=== PATIENT | female | born 1970 | race Caucasian/White ===

== ENCOUNTER 2016-07-22 18:28 | Emergency (ER) | payer MEDICARE, OTHER ==
[~2016-07-22] VITALS: Ht 162.6 cm; Wt 102.5 kg
[~2016-07-22 18:28] MED LIST: ADVA500A INH; AMLO5 PO; DILA4TAB2 PO; HUMALOG SQ; HYDR-3534 PO; IPRASOL INH; LANTUS2P SQ; MONT10TA2 PO; PRED-503 PO; VENTAER INH; XANA2TAB2 PO
[2016-07-22 18:30] VITALS: BP 189/111; PULSE 123; RESP 20; TEMP 101; O2SAT 93
== END 2016-07-22 19:38 | disposition left against medical advice (07) ==
LOC: NED 18:28
DX: R06.02 Shortness of breath (principal)
CPT/HCPCS: 99281

== ENCOUNTER 2016-09-28 11:25 | Inpatient (IN) | payer MEDICARE, OTHER ==
[2016-09-28] VITALS (8 sets, daily range): BP systolic 126–182; BP diastolic 68–107; PULSE 76–98; RESP 16–33; TEMP 96.8–98.1; O2SAT 97–100
[~2016-09-28] VITALS: Ht 162.6 cm; Wt 101.2 kg
[2016-09-28] MEDS: RESP: ALBUTEROL 2.5 MG/IPRATROPIUM 0.5 MG NEB (SCH) INH ×2 (11:58→11:59)
[2016-09-28] MEDS ORDERED: methylPREDNISolone SOD SUCC 125 MG/2 ML VIAL IVP ONE (12:00)
[2016-09-28] MEDS ORDERED: SODIUM CHLORIDE 0.9% FLUSH 5 ML FLUSH IVF PRN (12:00)
[2016-09-28 12:09] LABS: AUTOMATED NEUTROPHIL # 8.9 TH/MM3 (1.8-7.7); BASOPHIL % 0.2 % (0.0-2.0); EOSINOPHIL % 0.1 % (0.0-4.0); HEMATOCRIT 41.3 % (35.0-46.0); HEMO FLAGS DIFF FINAL; MEAN CORPUSCULAR HEMOGLOBIN 26.3 PG (27.0-34.0); MEAN CORPUSCULAR HGB CONC 32.8 % (32.0-36.0); MONO % 3.1 % (0.0-8.0); NEUT % 86.6 % (16.0-70.0); PLATELET COUNT 288 TH/MM3 (150-450); RED BLOOD COUNT 5.15 MIL/MM3 (4.00-5.30); RED CELL DISTRIBUTION WIDTH 15.1 % (11.6-17.2); WHITE BLOOD COUNT 10.2 TH/MM3 (4.0-11.0)
[2016-09-28 12:13] LABS: BLOOD GAS BASE EXCESS -3.8 mmol/L (-2-2); BLOOD GAS CARBOXYHEMOGLOBIN 0.9 % (0-4); BLOOD GAS HCO3 20 mmol/L (22-26); BLOOD GAS METHEMOGLOBIN 0.6 % (0-2); BLOOD GAS O2 HGB SATURATION 97 % (90-100); BLOOD GAS PCO2 35 mmHg (38-42); BLOOD GAS PO2 126 mmHG (61-120); BLOOD GAS TOTAL HGB 13.7 G/DL (12.0-16.0); TEMP CORR TO 98.6
[2016-09-28 12:14] LABS: CRITICAL VALUE NO; DRAW SITE LT RADIAL; LITER FLOW 3 L/M; NUMBER OF ARTERIAL PUNCTURES 1; OXYGEN DEVICE NASAL CANNULA; STAT YES; ULNAR PULSE PRESENT
--- NOTE | 2016-09-28 12:34 | PD ---
HPI Chief Complaint: Respiratory Distress Time Seen by Provider: 11:41 Travel History International Travel<30 days: No Contact w/Intl Traveler<30days: No Traveled to known affect area: No History of Present Illness HPI 46yo F with PMH of asthma, DM presents to the ED with c/o sob for 3 days. Pt went to urgent care 2 days ago and was told she should go to the hospital but she did not want to. Pt has chronic severe asthma and is on prednisone 50mg daily, singulair and advair. Pt used 3 treatments last night which did not help. Pt has frequent exacerbations and uses oxygen 3L NC at home daily. Had been intubated 2 years ago. Denies any fever, chest pain, n/v, abdominal pain, focal weakness or numbness. Last ED visit here was 06/2016. PFSH Past Medical History Arthritis: No Asthma: Yes Autoimmune Disease: No Blood Disorders: No Anxiety: Yes Depression: No Heart Rhythm Problems: No Cancer: No Cardiac Catheterization: Yes Cardiovascular Problems: Yes (HTN) High Cholesterol: No Chemotherapy: No Chest Pain: Yes Congestive Heart Failure: No COPD: No Cerebrovascular Accident: No Diabetes: Yes Patient Takes Glucophage: Yes (09/27/16 1900) Diminished Hearing: No Endocrine: Yes Gastrointestinal Disorders: Yes (GERD) GERD: Yes Glaucoma: No Genitourinary: No Headaches: Yes (CHRONIC SINUS INFECTIONS) Hepatitis: No Hiatal Hernia: No Hypertension: Yes Immune Disorder: No Kidney Stones: No Musculoskeletal: Yes (lower back problems) Neurologic: Yes (migraines) Psychiatric: Yes Reproductive: No Respiratory: Yes Migraines: Yes Myocardial Infarction: No Radiation Therapy: No Renal Failure: No Seizures: No Sickle Cell Disease: No Sleep Apnea: Yes Ulcer: No Tetanus Vaccination: < 5 Years Influenza Vaccination: Yes ?: Not : 5 Para: 3 Miscarriage: 1 : 1 Tubal Ligation: Yes Past Surgical History Abdominal Surgery: Yes (hernia repair, mesh, colectomy, colostomy reversal) AICD: No Appendectomy: No Arteriovenous Shunt: No Cardiac Surgery: No Cholecystectomy: No Ear Surgery: No Endocrine Surgery: No Eye Surgery: No Genitourinary Surgery: No Gynecologic Surgery: Yes (RIGHT BREAST LUMPECTOMY - DR. GARCIA) Hysterectomy: Yes (2008) Insulin Pump: No Joint Replacement: No Oral Surgery: No Pacemaker: No Thoracic Surgery: No Tonsillectomy: Yes Other Surgery: Yes (BRONCHOSCOPY) Social History Alcohol Use: No Tobacco Use: No (never) Substance Use: No Allergies-Medications (Allergen,Severity, Reaction): Coded Allergies: Vancomycin (Verified Allergy, Intermediate, HIVES, 09/28/16) Fentanyl (Verified Allergy, Mild, HIVES, 09/28/16) *MDRO Multi-Drug Resistant Organism (Verified Adverse Reaction, Unknown, ) MRSA PCR screen POSITIVE - 08/29/2015 Reported Meds & Prescriptions Reported Meds & Active Scripts Active Reported Metformin (Metformin HCl) 1,000 Mg Tab 1,000 Mg PO BIDPC With meals Deltasone (Prednisone) 20 Mg Tab 30 Mg PO DAILY Singulair (Montelukast Sodium) 10 Mg Tab 10 Mg PO HS Humalog Inj (Insulin Human Lispro) 1,000 Unit/10 Ml Vial 40 Units SQ TID Lantus Inj (Insulin Glargine) 1,000 Unit/10 Ml Vial 30 Units SQ HS Lortab (Hydrocodone-Acetaminophen) 7.5-325 Mg Tab 1-2 Tab PO Q4HR PRN Duoneb (Ipratropium-Albuterol Neb) 0.5-2.5 Mg/3 Ml Neb 1 Nebule INH Q2HR Norvasc (Amlodipine Besylate) 5 Mg Tab 10 Mg PO DAILY Xanax (Alprazolam) 2 Mg Tab 2 Mg PO Q8H PRN Ventolin Hfa 18 GM Inh (Albuterol Sulfate) 90 Mcg/Act Aer 2 Puff INH Q4H PRN Advair Diskus Inh (Fluticasone-Salmeterol Inh) 500-50 Mcg/Blist Aer 1 Puff INH BID Rinse mouth after use. Review of Systems Except as stated in HPI: all other systems reviewed are Neg Physical Exam Narrative GENERAL: 46yo F in moderate distress. SKIN: Warm and dry. HEAD: Atraumatic. Normocephalic. EYES: Pupils equal and round. No scleral icterus. No injection or drainage. ENT: No nasal bleeding or discharge. Mucous membranes pink and moist. +Thrush on tongue. NECK: Trachea midline. No JVD. CARDIOVASCULAR: Mildly tachycardic. No murmur appreciated. RESPIRATORY: +accessory muscle use. Diffuse expiratory wheezing in all lung boyle. GASTROINTESTINAL: Abdomen soft, non-tender, nondistended. +Surgical scar. MUSCULOSKELETAL: No obvious deformities. No clubbing. No cyanosis. No edema. No calf tenderness bilaterally. NEUROLOGICAL: Awake and alert. No obvious cranial nerve deficits. Motor grossly within normal limits. Normal speech. PSYCHIATRIC: Appropriate mood and affect; insight and judgment normal. Data Data Last Documented VS Vital Signs Date Time Temp Pulse Resp B/P Pulse Ox O2 Delivery O2 Flow Rate FiO2 09/28/16 13:10 76 22 126/74 98 Nasal Cannula 3 09/28/16 11:26 97.9 Orders Complete Blood Count With Diff (09/28/16 11:46) Basic Metabolic Panel (Bmp) (09/28/16 11:46) Magnesium (Mg) (09/28/16 11:46) Ckmb (Isoenzyme) Profile (09/28/16 11:46) Troponin I (09/28/16 11:46) Arterial Blood Gas (Abg) (09/28/16 11:46) Influenzae A/B Antigen (09/28/16 11:46) Iv Access Insert/Monitor (09/28/16 11:46) Electrocardiogram (09/28/16 11:46) Ecg Monitoring (09/28/16 11:46) Oximetry (09/28/16 11:46) Oxygen Administration (09/28/16 11:46) Chest, Single Ap (09/28/16 11:46) Sodium Chloride 0.9% Flush (Ns Flush) (09/28/16 12:00) Methylprednisolone So Succ Inj (Solumedr (09/28/16 12:00) Albuterol-Ipratropium Neb (Duoneb Neb) (09/28/16 12:00) Sodium Chlor 0.9% 1000 Ml Inj (Ns 1000 M (09/28/16 13:00) Insulin Human Regular Inj (Novolin R Inj (09/28/16 13:00) Guaifen-Cod 200-20 Mg/10ml Liq (Robituss (09/28/16 14:00) Ibuprofen (Motrin) (09/28/16 14:00) Admit Order (Ed Use Only) (09/28/16 14:04) Labs Laboratory Tests Test 09/28/16 09/28/16 11:58 12:05 White Blood Count 10.2 TH/MM3 Red Blood Count 5.15 MIL/MM3 Hemoglobin 13.5 GM/DL Hematocrit 41.3 % Mean Corpuscular Volume 80.0 FL Mean Corpuscular Hemoglobin 26.3 PG Mean Corpuscular Hemoglobin 32.8 % Concent Red Cell Distribution Width 15.1 % Platelet Count 288 TH/MM3 Mean Platelet Volume 8.3 FL Neutrophils (%) (Auto) 86.6 % Lymphocytes (%) (Auto) 10.0 % Monocytes (%) (Auto) 3.1 % Eosinophils (%) (Auto) 0.1 % Basophils (%) (Auto) 0.2 % Neutrophils # (Auto) 8.9 TH/MM3 Lymphocytes # (Auto) 1.0 TH/MM3 Monocytes # (Auto) 0.3 TH/MM3 Eosinophils # (Auto) 0.0 TH/MM3 Basophils # (Auto) 0.0 TH/MM3 CBC Comment DIFF FINAL Differential Comment Sodium Level 134 MEQ/L Potassium Level 3.8 MEQ/L Chloride Level 97 MEQ/L Carbon Dioxide Level 22.7 MEQ/L Anion Gap 14 MEQ/L Blood Urea Nitrogen 16 MG/DL Creatinine 1.48 MG/DL Estimat Glomerular Filtration 38 ML/MIN Rate Random Glucose 502 MG/DL Calcium Level 8.3 MG/DL Magnesium Level 2.0 MG/DL Total Creatine Kinase 31 U/L Troponin I LESS THAN 0.02 NG/ML Blood Gas Puncture Site LT RADIAL Blood Gas Patient Temperature 98.6 Blood Gas HCO3 20 mmol/L Blood Gas Base Excess -3.8 mmol/L Blood Gas Oxygen Saturation 97 % Arterial Blood pH 7.39 Arterial Blood Partial 35 mmHg Pressure CO2 Arterial Blood Partial 126 mmHG Pressure O2 Arterial Blood Oxygen Content 19.0 Vol % Arterial Blood 0.9 % Carboxyhemoglobin Arterial Blood Methemoglobin 0.6 % Blood Gas Hemoglobin 13.7 G/DL Oxygen Delivery Device NASAL CANNULA Blood Gas Liter Flow 3 L/M Blood Gas Ventilator Setting MDM Medical Decision Making Medical Screen Exam Complete: Yes Emergency Medical Condition: Yes Interpretation(s) EKG: NSR 85bpm. Normal axis. Q wave III. T wave flattening III. Differential Diagnosis Asthma exacerbation vs. pneumonia vs. CHF exacerbation Narrative Course 46yo F with asthma and DM here with sob for 3 days. Pt is wheezing and feels like her asthma. Pt has chronic severe asthma and is on oxygen at home as well as daily oral steroids which makes her diabetes hard to control. Labs reviewed , no leukocytosis. Glucose 502. Anion is 14. CO2 is normal at 22.7. Pt given 10 units of regular insulin and one liter of NS IVF. Creatinine is 1.48, which is at baseline. Troponin is negative. CXR showed cardiomegaly. NO acute focal pulmonary infiltrate or pulmonary vascular congestion. Pt given duonebs x3 and methylprednisolone 60mg IV. Pt still feels sob and is still wheezing bilaterally. Although oxygenation is good, pt has chronic severe asthma and still does not feel good to go home. Still wheezing so will admit for observation. Robitussin and ibuprofen given. Discussed with Dr. Moura and accepted to his service for asthma exacerbation. Diagnosis Primary Impression: Asthma exacerbation Admitting Information Admitting Physician Requests: Observation Carla Nichols DO Sep 28, 2016 12:34
[2016-09-28 12:46] LABS: ANION GAP 14 MEQ/L (5-15); BICARBONATE 22.7 MEQ/L (21.0-32.0); BLOOD UREA NITROGEN 16 MG/DL (7-18); CHLORIDE 97 MEQ/L (98-107); GLOMERULAR FILTRATION RATE 38 ML/MIN (>89); POTASSIUM 3.8 MEQ/L (3.5-5.1); SODIUM (NA) 134 MEQ/L (136-145)
[2016-09-28 12:51] LABS: CREATINE KINASE 31 U/L (26-192)
[2016-09-28] MEDS ORDERED: SODIUM CHLOR 0.9% 1000 ML INJ 1,000 ML IV ONE (13:00)
[2016-09-28] MEDS ORDERED: INSULIN HUMAN REGULAR 1,000 UNITS/10 ML VIAL SQ ONE (13:00)
--- NOTE | 2016-09-28 13:35 | RADRPT ---
EXAM DATE/TIME: 09/28/2016 12:55 [facility] COMPARISON: CHEST SINGLE AP, June 25, 2016, 10:09. INDICATIONS : Asthma with wheezing and coughing, shortness of breath for 3 days MEDICAL HISTORY : Asthma SURGICAL HISTORY : None. ENCOUNTER: Initial ACUITY: 3 days PAIN SCORE: 0/10 LOCATION: Bilateral chest FINDINGS: The heart is enlarged. The pulmonary vascularity pattern is normal. The lungs are clear. CONCLUSION: 1. Cardiomegaly. 2. No acute focal pulmonary infiltrate or pulmonary vascular congestion. Travis Pederson MD on September 28, 2016 at 13:27 Board Certified Radiologist. This report was verified electronically.
[2016-09-28] MEDS ORDERED: IBUPROFEN 600 MG TAB PO ONE (14:00)
[2016-09-28] MEDS ORDERED: guaiFENesin/CODEINE SYRUP 200 MG/20 MG/10 ML CUP PO ONE (14:00)
[2016-09-28] MEDS ORDERED: RESP: ALBUTEROL 2.5 MG/IPRATROPIUM 0.5 MG NEB (PRN) NEB (14:45)
--- NOTE | 2016-09-28 14:59 | HHI.HP ---
HPI Service [facility] Hospitalists Primary Care Physician Georges Hdez MD Admission Diagnosis Asthma exacerbation Chief Complaint: SOB/wheezing Travel History International Travel<30 Days: No Contact w/Intl Traveler <30 Da: No Traveled to Known Affected Are: No History of Present Illness Mrs. Giles is a 46 y/o WF with severe asthma diagnosed around 9 years ago, diagnosed through PFTs per the pt, and is chronically on steroid therapy. Pt thinks that she flares at least twice per month. She states that the lowest dose of steroids she takes is 20mg daily and chronically been on then for the last 8-9 years. She takes Advair 500/50 BID, Albuterol inhaler, and Duonebs at home daily. Pt also has steroid induced hyperglycemia/diabetes and is on Lantus 30 units HS, Humalog 40 units TID and Metformin 1000mg BID. She states that she started to flare up this past Wednesday night, 09/25/16, with a dry cough. She was seen at the urgent care at [place] on Wednesday, 09/26, and was given a shot of Solu-Medrol. She states that they wanted her to go to the ED then but she did not go. She took 50mg of prednisone last night but states that the wheezing and SOB just worsened and this prompted her to come to the ED today. She states that she is on supplemental O2 at home, mostly at night. She has ОЛЕГ but does not use her CPAP at night. Pt follows with Dr. Hutchins as an outpt for her asthma. In the ED pt was given Solu-Medrol 60mg x one dose, Duoneb, and Robitussin AC. Review of Systems Constitutional: DENIES: Fever, Chills Eyes: DENIES: Vision loss Ears, nose, mouth, throat: DENIES: Nasal discharge, Hoarseness, Running Nose, Sinus Pain Respiratory: COMPLAINS OF: Cough, Wheezing, Shortness of breath Cardiovascular: DENIES: Chest pain, Palpitations, Lower Extremity Edema Gastrointestinal: DENIES: Abdominal pain, Nausea, Vomiting Genitourinary: DENIES: Dysuria Musculoskeletal: DENIES: Neck pain Integumentary: DENIES: Rash Neurologic: DENIES: Headache Psychiatric: DENIES: Confusion Past Family Social History Past Medical History Asthma/COPD, severe chronic on high-dose chronic steroids, follows with Dr. Guerrero Hypertension Diabetes Hypothyroidism GERD Migraines Chronic low back pain Obesity Sleep apnea Hx of perforated diverticulosis Hx of wound infections from multiple abdominal surgeries with MRSA infections and wound vac placement Past Surgical History Partial colectomy for perforated diverticulosis Had colostomy and reversal Multiple abdominal surgeries for wound infections, mesh removal Fiberoptic bronchoscopy in 2005 for asthma Partial hysterectomy, pt still has ovaries Wrist surgery Bilateral breast lumpectomies D&C Sinus surgery Tubal ligation Tonsillectomy Reported Medications -Singulair 10 Mg PO HS -Humalog Inj 40 Units SQ TID -Lantus Inj 30 Units SQ HS -Lortab 7.5-325 Mg Tab 1-2 Tab PO Q4HR PRN -Duoneb 0.5-2.5 Mg/3 Ml Neb 1 Nebule INH Q2HR -Norvasc 10 Mg PO DAILY -Ventolin Hfa 18 GM Inh (Albuterol Sulfate) 90 Mcg/Act Aer 2 Puff INH Q4H PRN -Advair Diskus Inh (Fluticasone-Salmeterol Inh) 500-50 Mcg/Blist Aer 1 Puff INH BID Rinse mouth after use. --Deltasone 40 Mg PO DAILY --Xanax 1 Mg PO Q8H PRN ?Lisinopril 20mg PO DAILY ?Metformin 1000Mg PO BID ?Protonix 30Mg PO DAILY Allergies: Coded Allergies: Vancomycin (Verified Allergy, Intermediate, HIVES, 09/28/16) Fentanyl (Verified Allergy, Mild, HIVES, 09/28/16) *MDRO Multi-Drug Resistant Organism (Verified Adverse Reaction, Unknown, ) MRSA PCR screen positive - 08/29/2015 Family History Mother with hx of CAD Brother with cancer unknown type Father with hx of CAD/MN, bypass surgery Social History Never a smoker Denies any alcohol or illicit drug use Lives with and son Physical Exam Vital Signs Vital Signs Date Time Temp Pulse Resp B/P Pulse Ox O2 Delivery O2 Flow Rate FiO2 09/28/16 14:20 79 21 152/71 98 Nasal Cannula 3 09/28/16 13:10 76 22 126/74 98 Nasal Cannula 3 09/28/16 11:59 100 Nasal Cannula 3.00 09/28/16 11:51 99 Nasal Cannula 3 09/28/16 11:44 98 33 167/107 99 Nasal Cannula 3 09/28/16 11:42 100 23 97 Nasal Cannula 3 09/28/16 11:26 97.9 96 24 182/106 98 Room Air Physical Exam GENERAL: This is a well-nourished, well-developed patient, in no apparent distress. SKIN: No rashes, ecchymoses or lesions. Cool and dry. HEENT: Atraumatic. Normocephalic. No temporal or scalp tenderness. No scleral icterus. Airway patent. NECK: Trachea midline, supple, nontender. CARDIO: Regular. RESP: Wheezing throughout and rhonchi noted ABD: +BS, soft, non-tender, nondistended. EXT: Extremities without clubbing, cyanosis, or edema. NEURO: Awake and alert. Motor and sensory grossly within normal limits. Normal speech. Laboratory Laboratory Tests Test 09/28/16 09/28/16 11:58 12:05 White Blood Count 10.2 Red Blood Count 5.15 Hemoglobin 13.5 Hematocrit 41.3 Mean Corpuscular Volume 80.0 Mean Corpuscular Hemoglobin 26.3 Mean Corpuscular Hemoglobin 32.8 Concent Red Cell Distribution Width 15.1 Platelet Count 288 Mean Platelet Volume 8.3 Neutrophils (%) (Auto) 86.6 Lymphocytes (%) (Auto) 10.0 Monocytes (%) (Auto) 3.1 Eosinophils (%) (Auto) 0.1 Basophils (%) (Auto) 0.2 Neutrophils # (Auto) 8.9 Lymphocytes # (Auto) 1.0 Monocytes # (Auto) 0.3 Eosinophils # (Auto) 0.0 Basophils # (Auto) 0.0 CBC Comment DIFF FINAL Differential Comment Sodium Level 134 Potassium Level 3.8 Chloride Level 97 Carbon Dioxide Level 22.7 Anion Gap 14 Blood Urea Nitrogen 16 Creatinine 1.48 Estimat Glomerular Filtration 38 Rate Random Glucose 502 Calcium Level 8.3 Magnesium Level 2.0 Total Creatine Kinase 31 Troponin I LESS THAN 0.02 Blood Gas Puncture Site LT RADIAL Blood Gas Patient Temperature 98.6 Blood Gas HCO3 20 Blood Gas Base Excess -3.8 Blood Gas Oxygen Saturation 97 Arterial Blood pH 7.39 Arterial Blood Partial 35 Pressure CO2 Arterial Blood Partial 126 Pressure O2 Arterial Blood Oxygen Content 19.0 Arterial Blood 0.9 Carboxyhemoglobin Arterial Blood Methemoglobin 0.6 Blood Gas Hemoglobin 13.7 Oxygen Delivery Device NASAL CANNULA Blood Gas Liter Flow 3 Blood Gas Ventilator Setting Date/Time Procedure Status Source Growth 09/28/16 11:56 Influenza Types A,B Antigen (CHANO) - Final Complete Nasal Aspirate NEGATIVE FOR FLU A AND B ANTIGEN.... Result Diagram: 09/28/16 1158 09/28/16 1158 Imaging Last Impressions Chest X-Ray 09/28/16 1146 Signed Impressions: Service Date/Time: Wednesday, September 28, 2016 12:55 - CONCLUSION: 1. Cardiomegaly. 2. No acute focal pulmonary infiltrate or pulmonary vascular congestion. Travis Pederson MD Septic Shock Reassessment Heart: Regular rate and rhythm Lungs: Course Skin: Warm Assessment and Plan Problem List: (1) Asthma exacerbation Status: Acute Plan: - Pt admitted with worsening SOB and wheezing and has severe asthma and has chronically been on high doses of steroids for several years. - Pt was given Solu-Medrol 60mg in the ED, we will given another 60mg now and then continue 60mg Q6H - Duonebs Q4H and Q2H PRN - Phenergan/Codeine for cough PRN - Cont. Symbicort and Singulair - Supportive care - DVT prophylaxis with SCDs (2) DM (diabetes mellitus) Status: Chronic Plan: - Pt with steroid induced hyperglycemia. - Outpt Hgb A1C most recently is over 9 - Pts glucose is over 500 - Pt was given 10 units of insulin in the ED - High dose NovoLog SSI - Levemir 30units HS - Accu checks (3) HTN (hypertension) Status: Chronic Plan: - Cont. home meds - Monitor - Clonidine PRN (4) GERD (gastroesophageal reflux disease) Status: Chronic Plan: - PPI (5) Morbid obesity Status: Chronic (6) Hypothyroidism Status: Chronic Plan: - Cont. home meds Assessment and Plan Patient examined. Assessment and plan formulated with Noelle Hammer PA-C. I agree with the above. asthma exacerbation. solumedrol/nebs. singulair. oxygen Noelle Hammer Sep 28, 2016 14:59 Christopher Mcgill MD Sep 28, 2016 20:21
[2016-09-28] MEDS ORDERED: ALBUTEROL SULFATE 90 MCG/ACT HFA 8 GM INHALER INH PRN (15:45)
[2016-09-28] MEDS ORDERED: methylPREDNISolone SOD SUCC 125 MG/2 ML VIAL IV PUSH ONE (15:45)
[2016-09-28] MEDS ORDERED: METF1000 PO (15:49)
[2016-09-28] MEDS: RESP: ALBUTEROL 2.5 MG/IPRATROPIUM 0.5 MG NEB (SCH) NEB (15:55)
[2016-09-28] MEDS: INSULIN ASPART SUPPLEMENTAL SCALE SQ SCH ×2 (16:48→20:52)
[2016-09-28] MEDS ORDERED: cloNIDine HCL 0.1 MG TAB PO PRN (17:15)
[2016-09-28] MEDS: ALPRAZolam 1 MG TAB PO PRN (17:26)
[2016-09-28] MEDS: ACETAMINOPHEN/HYDROcodone 325 MG/7.5 MG TAB PO PRN ×2 (17:26→22:47)
[2016-09-28] MEDS: MONTELUKAST SODIUM 10 MG TAB PO SCH (20:42)
[2016-09-28] MEDS: NYSTATIN SUSP 500,000 U/5 ML CUP SWISH-SWAL SCH (20:42)
[2016-09-28] MEDS: PROMETHAZINE/CODEINE 6.25 MG/10 MG/5 ML CUP PO PRN (20:42)
[2016-09-28] MEDS: MORPHINE SULFATE 4 MG/ML INJ IV PUSH PRN (20:51)
[2016-09-28] MEDS: INSULIN DETEMIR 100 UNITS/ML VIAL SQ SCH (20:52)
[2016-09-28] MEDS: methylPREDNISolone SOD SUCC 125 MG/2 ML VIAL IV PUSH SCH (22:48)
[2016-09-29] VITALS (9 sets, daily range): BP systolic 122–186; BP diastolic 82–99; PULSE 59–85; RESP 16–20; TEMP 96.9–98.1; O2SAT 94–99
[2016-09-29] MEDS: RESP: ALBUTEROL 2.5 MG/IPRATROPIUM 0.5 MG NEB (SCH) NEB ×6 (00:17→21:43)
[2016-09-29] MEDS: PROMETHAZINE/CODEINE 6.25 MG/10 MG/5 ML CUP PO PRN ×3 (00:53→20:43)
[2016-09-29] MEDS: MORPHINE SULFATE 4 MG/ML INJ IV PUSH PRN ×2 (00:53→06:10)
[2016-09-29] MEDS: BUDESONIDE-FORMOTEROL 160/4.5 MCG INHALER INH SCH ×3 (00:57→20:44)
[2016-09-29] MEDS: ACETAMINOPHEN/HYDROcodone 325 MG/7.5 MG TAB PO PRN ×5 (02:56→23:58)
[2016-09-29] MEDS: ALPRAZolam 1 MG TAB PO PRN ×2 (02:56→20:43)
[2016-09-29] MEDS: methylPREDNISolone SOD SUCC 125 MG/2 ML VIAL IV PUSH SCH ×5 (06:11→23:58)
[2016-09-29] MEDS: INSULIN ASPART SUPPLEMENTAL SCALE SQ SCH ×4 (06:11→20:42)
[2016-09-29 06:52] LABS: AUTOMATED NEUTROPHIL # 9.2 TH/MM3 (1.8-7.7); BASOPHIL % 0.1 % (0.0-2.0); HEMATOCRIT 39.9 % (35.0-46.0); HEMO FLAGS DIFF FINAL; LYMPH % 5.7 % (9.0-44.0); LYMPHOCYTE # 0.6 TH/MM3 (1.0-4.8); MEAN CELL VOLUME 79.5 FL (80.0-100.0); MEAN CORPUSCULAR HEMOGLOBIN 25.8 PG (27.0-34.0); MEAN CORPUSCULAR HGB CONC 32.5 % (32.0-36.0); MONO % 0.6 % (0.0-8.0); NEUT % 93.6 % (16.0-70.0); PLATELET COUNT 274 TH/MM3 (150-450); RED BLOOD COUNT 5.02 MIL/MM3 (4.00-5.30); RED CELL DISTRIBUTION WIDTH 15.2 % (11.6-17.2); WHITE BLOOD COUNT 9.8 TH/MM3 (4.0-11.0)
[2016-09-29 07:39] LABS: BICARBONATE 27.8 MEQ/L (21.0-32.0); MAGNESIUM 2.3 MG/DL (1.5-2.5); POTASSIUM 4.4 MEQ/L (3.5-5.1)
[2016-09-29] MEDS: amLODIPine BESYLATE 5 MG TAB PO SCH (08:41)
[2016-09-29] MEDS: NYSTATIN SUSP 500,000 U/5 ML CUP SWISH-SWAL SCH ×4 (08:41→20:42)
--- NOTE | 2016-09-29 08:43 | PD.PN.STU ---
Subjective Remarks 46 year old female admitted one day ago for acute asthma exacerbation. She states that she is doing a little better but mostly the feels the same as yesterday. Her cough has improved with the Phenergan. She is currently on 2L of oxygen via nasal cannula. She feels short of breath when not using oxygen but will remove it intermittently due to nasal dryness. Objective Vitals Vital Signs Date Time Temp Pulse Resp B/P Pulse Ox O2 Delivery O2 Flow Rate FiO2 09/29/16 07:32 99 Nasal Cannula 2.00 09/29/16 04:00 96.9 59 18 153/96 98 09/29/16 00:19 98 Nasal Cannula 3.00 09/29/16 00:00 97.0 66 18 161/84 97 09/28/16 20:00 96.8 77 18 140/93 97 09/28/16 18:23 98.1 78 16 165/89 98 09/28/16 16:30 91 22 134/68 97 Nasal Cannula 3 09/28/16 14:20 79 21 152/71 98 Nasal Cannula 3 09/28/16 13:10 76 22 126/74 98 Nasal Cannula 3 09/28/16 11:59 100 Nasal Cannula 3.00 09/28/16 11:51 99 Nasal Cannula 3 09/28/16 11:44 98 33 167/107 99 Nasal Cannula 3 09/28/16 11:42 100 23 97 Nasal Cannula 3 09/28/16 11:26 97.9 96 24 182/106 98 Room Air I/O 09/28/16 09/28/16 09/28/16 09/29/16 09/29/16 09/29/16 07:00 15:00 23:00 07:00 15:00 23:00 Intake Total 240 ml 480 ml Balance 240 ml 480 ml Intake Oral 240 ml 480 ml # Voids 3 Result Diagram: 09/29/1660509/29/16 06 Procedures GENERAL: This is a well-developed, well-nourished female who is in no apparent distress. SKIN: No rashes, ecchymoses or lesions. Skin is cool and dry. HEENT: Atraumatic. Normocephalic. No scleral icterus. Airway patent. NECK: Trachea midline, supple, nontender. CARDIO: Normal S1 and S2. No murmurs or gallops RESP: Diffuse wheezing EXT: Extremities without clubbing, cyanosis, or edema. NEURO: Awake and alert. Motor and sensory grossly within normal limits. Normal speech. A/P Assessment and Plan (1) Asthma exacerbation Status: Acute Plan: - Continue 60mg Q6H - Duonebs Q4H and Q2H PRN - Phenergan/Codeine for cough PRN - Cont. Symbicort and Singulair - Supportive care (2) DM (diabetes mellitus) Status: Chronic Plan: - Pt with steroid induced hyperglycemia. - High dose NovoLog SSI - Levemir 30units HS - Accu checks (3) HTN (hypertension) Status: Chronic Plan: - Continue home meds - Monitor - Clonidine PRN (4) GERD (gastroesophageal reflux disease) Status: Chronic Plan: - PPI (5) Morbid obesity Status: Chronic (6) Hypothyroidism Status: Chronic Plan: - Continue home meds Discharge Planning Patient examined. Assessment and plan formulated with Noelle Hammer PA-C. I agree with the above. severe asthma with exacerbation. improving slowly. plan to continue iv solumedrol and convert to po prednisone and taper in AM. contl nebs. cont home maintenance meds singulair and inhalers. will have quick pcp f/u after d/c. Jeimy Rocha Sep 29, 2016 08:42 Christopher Mcgill MD Sep 29, 2016 10:46
--- NOTE | 2016-09-29 10:26 | EKG ---
Date Performed: 09/28/2016 Time Performed: 12:21:59 PTAGE: 46 years EKG: Sinus rhythm NONSPECIFIC T-WAVE ABNORMALITY BORDERLINE ECG PREVIOUS TRACING : 06/25/2016 11.50 DOCTOR: Dario Richards Interpretating Date/Time 09/29/2016 10:22:16
--- NOTE | 2016-09-29 10:43 | HHI.PR ---
Subjective Remarks seems better. Objective Vitals heart reg lung wheezing katarina abd s/nt ext no edema Vital Signs Date Time Temp Pulse Resp B/P Pulse Ox O2 Delivery O2 Flow Rate FiO2 09/29/16 08:00 97.9 75 16 122/82 94 09/29/16 07:32 99 Nasal Cannula 2.00 09/29/16 04:00 96.9 59 18 153/96 98 09/29/16 00:19 98 Nasal Cannula 3.00 09/29/16 00:00 97.0 66 18 161/84 97 09/28/16 20:00 96.8 77 18 140/93 97 09/28/16 18:23 98.1 78 16 165/89 98 09/28/16 16:30 91 22 134/68 97 Nasal Cannula 3 09/28/16 14:20 79 21 152/71 98 Nasal Cannula 3 09/28/16 13:10 76 22 126/74 98 Nasal Cannula 3 09/28/16 11:59 100 Nasal Cannula 3.00 09/28/16 11:51 99 Nasal Cannula 3 09/28/16 11:44 98 33 167/107 99 Nasal Cannula 3 09/28/16 11:42 100 23 97 Nasal Cannula 3 09/28/16 11:26 97.9 96 24 182/106 98 Room Air 09/28/16 09/28/16 09/29/16 14:59 22:59 06:59 Intake Total 240 ml 480 ml Balance 240 ml 480 ml Intake Oral 240 ml 480 ml # Voids 3 Result Diagram: 09/29/16 0606 09/29/16 0606 Imaging Last Impressions Chest X-Ray 09/28/16 1146 Signed Impressions: Service Date/Time: Wednesday, September 28, 2016 12:55 - CONCLUSION: 1. Cardiomegaly. 2. No acute focal pulmonary infiltrate or pulmonary vascular congestion. Travis Pederson MD A/P Problem List: (1) Asthma exacerbation Status: Acute Plan: - Pt admitted with worsening SOB and wheezing and has severe asthma and has chronically been on high doses of steroids for several years. s/p bronchoscopy and thermoplasty. - continue solumedrol today and convert to prednisone in AM. duonebs. cont singulair and maintenance meds plan for d/c home in AM. (2) DM (diabetes mellitus) Status: Chronic Plan: - Pt with steroid induced hyperglycemia. - Outpt Hgb A1C most recently is over 9 - High dose NovoLog SSI - Levemir 30units HS - Accu checks (3) HTN (hypertension) Status: Chronic Plan: - Cont. home meds - Monitor - Clonidine PRN (4) GERD (gastroesophageal reflux disease) Status: Chronic Plan: - PPI (5) Morbid obesity Status: Chronic (6) Hypothyroidism Status: Chronic Plan: - Cont. home meds Christopher Mcgill MD Sep 29, 2016 10:43
[2016-09-29] MEDS: INSULIN DETEMIR 100 UNITS/ML VIAL SQ SCH (20:41)
[2016-09-29] MEDS: MONTELUKAST SODIUM 10 MG TAB PO SCH (20:43)
[2016-09-29] MEDS ORDERED: cloNIDine HCL 0.1 MG TAB PO PRN (21:15)
[2016-09-30] VITALS: BP 164/104; PULSE 74; RESP 20; TEMP 97.1; O2SAT 95
[2016-09-30] MEDS: RESP: ALBUTEROL 2.5 MG/IPRATROPIUM 0.5 MG NEB (SCH) NEB ×4 (01:18→11:44)
[2016-09-30 03:11] VITALS: BP 111/57; PULSE 69; RESP 18; TEMP 96.9; O2SAT 93
[2016-09-30] MEDS: ACETAMINOPHEN/HYDROcodone 325 MG/7.5 MG TAB PO PRN ×2 (06:12→10:13)
[2016-09-30] MEDS: methylPREDNISolone SOD SUCC 125 MG/2 ML VIAL IV PUSH SCH (06:14)
[2016-09-30] MEDS: INSULIN ASPART SUPPLEMENTAL SCALE SQ SCH ×2 (06:20→11:00)
[2016-09-30] MEDS: PROMETHAZINE/CODEINE 6.25 MG/10 MG/5 ML CUP PO PRN (07:02)
[2016-09-30] MEDS: ALPRAZolam 1 MG TAB PO PRN (07:02)
[2016-09-30 07:50] VITALS: BP 161/93; PULSE 66; RESP 20; TEMP 96.9; O2SAT 97
[2016-09-30 08:36] VITALS: O2SAT 97
--- NOTE | 2016-09-30 09:39 | HHI.PR ---
Subjective Remarks better and near baseline. Objective Vitals heart reg lung wheezing bila abd s/nt ext no edema Vital Signs Date Time Temp Pulse Resp B/P Pulse Ox O2 Delivery O2 Flow Rate FiO2 09/30/16 08:36 97 Nasal Cannula 3.00 09/30/16 07:50 96.9 66 20 161/93 97 09/30/16 03:11 96.9 69 18 111/57 93 09/30/16 00:00 97.1 74 20 164/104 95 09/29/16 21:44 98 Nasal Cannula 2.00 09/29/16 20:00 97.8 85 20 156/91 98 09/29/16 16:00 97.8 77 16 172/96 95 09/29/16 12:39 98.1 84 16 186/99 94 09/29/16 09/29/16 09/30/16 15:00 23:00 07:00 Intake Total 900 ml 720 ml 240 ml Balance 900 ml 720 ml 240 ml Intake Oral 900 ml 720 ml 240 ml # Voids 3 3 1 Result Diagram: 09/29/16 0606 09/29/16 0606 Imaging Last Impressions Chest X-Ray 09/28/16 1146 Signed Impressions: Service Date/Time: Wednesday, September 28, 2016 12:55 - CONCLUSION: 1. Cardiomegaly. 2. No acute focal pulmonary infiltrate or pulmonary vascular congestion. Travis Pederson MD A/P Problem List: (1) Asthma exacerbation Status: Acute Plan: - Pt admitted with worsening SOB and wheezing and has severe asthma and has chronically been on high doses of steroids for several years. s/p bronchoscopy and thermoplasty. -improved and pt says she feels comfortable going home. prednisone taper back down to 20mg daily baseline if possible f/u pcp. (2) DM (diabetes mellitus) Status: Chronic Plan: - Pt with steroid induced hyperglycemia. - Outpt Hgb A1C most recently is over 9 - High dose NovoLog SSI - Levemir 30units HS - Accu checks (3) HTN (hypertension) Status: Chronic Plan: - Cont. home meds - Monitor - Clonidine PRN (4) GERD (gastroesophageal reflux disease) Status: Chronic Plan: - PPI (5) Morbid obesity Status: Chronic (6) Hypothyroidism Status: Chronic Plan: - Cont. home meds Christopher Mcgill MD Sep 30, 2016 09:39
[2016-09-30] MEDS ORDERED: PROM6.256 PO (09:45)
[2016-09-30] MEDS ORDERED: PRED10 PO ×2 (09:45→09:48)
[2016-09-30] MEDS ORDERED: NYST1000 SWISH-SWAL (09:45)
--- NOTE | 2016-09-30 09:46 | HHI.DCPOC ---
Discharge Care Plan Diagnosis: (1) Asthma exacerbation Goals to Promote Your Health * To prevent worsening of your condition and complications * To maintain your health at the optimal level Directions to Meet Your Goals Take your medications as prescribed Follow your dietary instruction Follow activity as directed Keep your appointments as scheduled Take your immunizations and boosters as scheduled If your symptoms worsen call your PCP, if no PCP go to Urgent Care Center or Emergency Room Smoking is Dangerous to Your Health. Avoid second hand smoke Call the 24-hour hour crisis hotline for domestic abuse at Christopher Mcgill MD Sep 30, 2016 09:45
[2016-09-30] MEDS ORDERED: predniSONE 10 MG TAB PO ONE (10:00)
[2016-09-30] MEDS: amLODIPine BESYLATE 5 MG TAB PO SCH ×2 (10:12→10:15)
[2016-09-30] MEDS: NYSTATIN SUSP 500,000 U/5 ML CUP SWISH-SWAL SCH ×2 (10:12→10:15)
[2016-09-30] MEDS: BUDESONIDE-FORMOTEROL 160/4.5 MCG INHALER INH SCH (10:22)
== END 2016-09-30 12:17 | disposition home or self-care (01) | DRG 203 ==
LOC: NEPA 11:25 → NEDA 14:06 → OBSVTOIN 16:01 → HOCB 18:14
PROVIDERS: ADMIT Hospitalist; ATTEND Hospitalist
DX: J45.901 Unspecified asthma with (acute) exacerbation (principal); E11.65 Type 2 diabetes mellitus with hyperglycemia; I10 Essential (primary) hypertension; E66.01 Morbid (severe) obesity due to excess calories; T38.0X5A Adverse effect of glucocorticoids and synthetic analogues, initial encounter; K21.9 Gastro-esophageal reflux disease without esophagitis; E03.9 Hypothyroidism, unspecified; Z79.4 Long term (current) use of insulin; Z68.38 Body mass index [BMI] 38.0-38.9, adult
CPT/HCPCS: 36600; 71010; 80048; 82550; 82805; 83735; 84484; 85025; 87804; 93005; 94640; 94664; 96374; 96375; J1815; J2270; J2930; J7030; J7512

== ENCOUNTER 2017-03-21 13:25 | Emergency (ER) | payer MEDICARE, OTHER ==
[~2017-03-21] VITALS: Ht 162.6 cm; Wt 100.0 kg
[~2017-03-21 13:25] MED LIST changes: -DILA4TAB2 PO; +METF1000 PO; +NYST1000 SWISH-SWAL; -PRED-503 PO; +PRED10 PO; +PROM6.256 PO
[2017-03-21 13:27] VITALS: BP 201/89; PULSE 90; RESP 24; TEMP 98.5; O2SAT 97
[2017-03-21 13:33] VITALS: BP 185/92; PULSE 90; RESP 32; O2SAT 94
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
[2017-03-21 14:00] VITALS: O2SAT 95
[2017-03-21] MEDS ORDERED: methylPREDNISolone SOD SUCC 125 MG/2 ML VIAL IVP ONE (14:00)
[2017-03-21] MEDS ORDERED: SODIUM CHLORIDE 0.9% FLUSH 10 ML FLUSH IVF PRN (14:00)
[2017-03-21] MEDS: RESP: ALBUTEROL 2.5 MG/IPRATROPIUM 0.5 MG NEB (SCH) INH (14:10)
[2017-03-21] MEDS ORDERED: BENZ100 PO (14:31)
[2017-03-21] MEDS ORDERED: ALBUAER3 INH (14:36)
== END 2017-03-21 15:51 | disposition home or self-care (01) ==
LOC: NEPD 13:25
DX: J45.901 Unspecified asthma with (acute) exacerbation (principal); I10 Essential (primary) hypertension
CPT/HCPCS: 94640; 94664; 96374; 99285; J2930

== ENCOUNTER 2017-04-17 05:34 | Emergency (ER) | payer MEDICARE, OTHER ==
[~2017-04-17] VITALS: Ht 162.6 cm; Wt 100.0 kg
[~2017-04-17 05:34] MED LIST changes: +ALBUAER3 INH; +BENZ100 PO
[2017-04-17 05:39] VITALS: BP 179/103; PULSE 84; RESP 18; TEMP 97.7; O2SAT 96
[2017-04-17] MEDS ORDERED: CYCL1TAB29 PO (05:42)
[2017-04-17] MEDS ORDERED: ZITHTAB PO (05:51)
[2017-04-17] MEDS ORDERED: NOVOLOGP2 SQ (05:51)
[2017-04-17] MEDS ORDERED: PRED20 PO (05:51)
--- NOTE | 2017-04-17 05:55 | PD ---
HPI Chief Complaint: shoulder pain Time Seen by Provider: 05:40 Travel History International Travel<30 days: No Contact w/Intl Traveler<30days: No Traveled to known affect area: No History of Present Illness HPI The patient is a 47-year-old female who presents emergency department for right shoulder and scapula pain. The patient states she developed right shoulder as The pain several days ago as located in the right scapula, radiates up to the right trapezius and occasionally radiates down the right arm. The pain is worse with certain tightness and movement and positions, sharp, achy, and radiating into the right upper extremity. She denies any weakness or numbness of the right upper extremity. The patient received an injection of Solu-Medrol yesterday and her physician's office for asthma was discharged home on prednisone. She was also prescribed Flexeril, however, states the Flexeril is not alleviating her symptoms. The patient denies any chest pain, does note mild shortness of breath secondary to her asthma, but states that has improved since yesterday. The patient states her has been applying BenGay over the affected area and massage in the affected area which does help the pain, however, the pain will return. Symptoms are mild to moderate, worse with positional changes and movement, slightly alleviated with massage, BenGay, and pain medications. PFSH Past Medical History Arthritis: No Asthma: Yes Autoimmune Disease: No Blood Disorders: No Anxiety: Yes Depression: No Heart Rhythm Problems: No Cancer: No Cardiac Catheterization: Yes Cardiovascular Problems: Yes (HTN) High Cholesterol: No Chemotherapy: No Chest Pain: Yes Congestive Heart Failure: No COPD: No Cerebrovascular Accident: No Diabetes: Yes Diminished Hearing: No Endocrine: Yes Gastrointestinal Disorders: Yes (GERD) GERD: Yes Glaucoma: No Genitourinary: No Headaches: Yes (CHRONIC SINUS INFECTIONS) Hepatitis: No Hiatal Hernia: No Hypertension: Yes Immune Disorder: No Kidney Stones: No Musculoskeletal: Yes (lower back problems) Neurologic: Yes (migraines) Psychiatric: Yes Reproductive: No Respiratory: Yes Migraines: Yes Myocardial Infarction: No Radiation Therapy: No Renal Failure: No Seizures: No Sickle Cell Disease: No Sleep Apnea: Yes Ulcer: No : 5 Para: 3 Miscarriage: 1 : 1 Tubal Ligation: Yes Past Surgical History Abdominal Surgery: Yes (hernia repair, mesh, colectomy, colostomy reversal) AICD: No Appendectomy: No Arteriovenous Shunt: No Cardiac Surgery: No Cholecystectomy: No Ear Surgery: No Endocrine Surgery: No Eye Surgery: No Genitourinary Surgery: No Gynecologic Surgery: Yes (RIGHT BREAST LUMPECTOMY - DR. GARCIA) Hysterectomy: Yes (2008) Insulin Pump: No Joint Replacement: No Oral Surgery: No Pacemaker: No Thoracic Surgery: No Tonsillectomy: Yes Other Surgery: Yes (BRONCHOSCOPY) Social History Alcohol Use: No Tobacco Use: No (never) Substance Use: No Allergies-Medications (Allergen,Severity, Reaction): Coded Allergies: vancomycin (Unverified Allergy, Intermediate, HIVES, 02/23/17) fentanyl (Unverified Allergy, Mild, HIVES, 02/23/17) *MDRO Multi-Drug Resistant Organism (Verified Adverse Reaction, Unknown, ) MRSA PCR screen POSITIVE - 08/29/2015 Reported Meds & Prescriptions Reported Meds & Active Scripts Active Proair Hfa 8.5 GM Inh (Albuterol Sulfate) 90 Mcg/Act Aer 2 Puff INH Q4HR PRN 108 mcg/actuation Tessalon Perles (Benzonatate) 100 Mg Cap 200 Mg PO TID PRN Prednisone 10 Mg Tab 10 Mg PO DIRECTED 30 Days 30mg po bid x 7 days, 20mg po bid x 7 days, 15 mg po bid x 7 days, then 10mg po bid Promethazine-Codeine Liq 6.25-10 Mg/5 Ml Syrp 5 Ml PO Q4H PRN 30 Days Nystatin Liq 100,000 unit/ml Susp 5 Ml SWISH-SWAL QID 7 Days Reported Flexeril (Cyclobenzaprine HCl) 10 Mg Tab 10 Mg PO TID Metformin (Metformin HCl) 1,000 Mg Tab 1,000 Mg PO BIDPC With meals Singulair (Montelukast Sodium) 10 Mg Tab 10 Mg PO HS Humalog Inj (Insulin Human Lispro) 1,000 Unit/10 Ml Vial 40 Units SQ TID Lantus Inj (Insulin Glargine) 1,000 Unit/10 Ml Vial 30 Units SQ HS Lortab (Hydrocodone-Acetaminophen) 7.5-325 Mg Tab 1-2 Tab PO Q4HR PRN Duoneb (Ipratropium-Albuterol Neb) 0.5-2.5 Mg/3 Ml Neb 1 Nebule INH Q2HR Norvasc (Amlodipine Besylate) 5 Mg Tab 10 Mg PO DAILY Xanax (Alprazolam) 2 Mg Tab 2 Mg PO Q8H PRN Ventolin Hfa 18 GM Inh (Albuterol Sulfate) 90 Mcg/Act Aer 2 Puff INH Q4H PRN Advair Diskus Inh (Fluticasone-Salmeterol Inh) 500-50 Mcg/Blist Aer 1 Puff INH BID Rinse mouth after use. Review of Systems Except as stated in HPI: all other systems reviewed are Neg HENT: Positive: Neck Pain Cardiovascular: No: Chest Pain or Discomfort Respiratory: Positive: Cough (currently on Zithromax for possible bronchitis with her asthma), Shortness of Breath (secondary to asthma, currently being treated), Wheezing Gastrointestinal: No: Nausea, Vomiting Musculoskeletal: Positive: Pain, No: Weakness Neurologic: No: Weakness, Paresthesia, Sensory Disturbance Physical Exam Narrative GENERAL: Awake, alert, pleasant 47-year-old female who appears her stated age and is in no acute respiratory distress. SKIN: Focused skin assessment warm/dry. HEAD: Atraumatic. Normocephalic. EYES: Pupils equal and round. No scleral icterus. No injection or drainage. ENT: No nasal bleeding or discharge. Mucous membranes pink and moist. NECK: Trachea midline. No JVD. CARDIOVASCULAR: Regular rate and rhythm. No murmur appreciated. RESPIRATORY: Prolonged expiratory phase with a few intermittent wheezes. Back: Patient is tender to palpation along the rhomboids in the right scapula. Deep palpation re-exacerbates her pain, however, does provide mild relief. MUSCULOSKELETAL: No obvious deformities. No clubbing. No cyanosis. No edema. Strength with flexion extension of the right elbow is 5 out of 5. [employer] Supervisor strength is 5 out of 5. Intrinsic hand muscles on the right are intact. Positive right radial pulse. Abduction right shoulder is 5 out of 5, but reproduces symptoms. NEUROLOGICAL: Awake and alert. No obvious cranial nerve deficits. Motor grossly within normal limits. Normal speech. Sensation is intact with radial, median, and ulnar distribution of the right upper extremity. PSYCHIATRIC: Appropriate mood and affect; insight and judgment normal. Data Data Last Documented VS Vital Signs Date Time Temp Pulse Resp B/P (MAP) Pulse Ox O2 Delivery O2 Flow Rate FiO2 04/17/17 05:39 97.7 84 18 179/103 (128) 96 Room Air Orders Orders Ketorolac Inj (Toradol Inj) (04/17/17 06:00) Morphine Inj (Morphine Inj) (04/17/17 06:00) Promethazine Inj (Phenergan Inj) (04/17/17 06:00) [facility] Medical Decision Making Medical Screen Exam Complete: Yes Emergency Medical Condition: Yes Medical Record Reviewed: Yes Differential Diagnosis Differential diagnosis includes musculoskeletal pain, cervical radiculopathy, shingles, atypical acute coronary syndrome, atypical pulmonary embolism, pneumonia, neuropathy. Narrative Course The patient's physical examination is consistent with musculoskeletal pain is reproducible with palpation of the rhomboids and minimal palpation of the trapezius. The patient has no acute neurologic deficits. She is already on prednisone for asthma, is advised to continue taking prednisone and Flexeril as directed. Patient already has [place] at home, is advised to continue [place] as previously directed. The patient was administered a shot of Toradol, morphine, and Phenergan for pain relief, her will give her drive home. She is advised to follow-up with her primary physician. Diagnosis Primary Impression: Rhomboid muscle pain Additional Instructions: Continue Flexeril, prednisone, [place] as previously directed. Apply ice and/or heat to the affected area. Try massage therapy as tolerated. Follow-up with your primary physician. Med/Other Pt SpecificInfo: No Change to Meds Disposition: 01 DISCHARGE HOME Condition: Stable Enrike Avery MD Apr 17, 2017 05:55
[2017-04-17] MEDS ORDERED: PROMETHAZINE INJ 25 MG/ML VIAL IM ONE (06:00)
[2017-04-17] MEDS ORDERED: KETOROLAC TROMETHAMINE 60 MG/2 ML (IM) VIAL IM ONE (06:00)
[2017-04-17] MEDS ORDERED: MORPHINE SULFATE 8 MG/ML INJ IM ONE (06:00)
== END 2017-04-17 06:18 | disposition home or self-care (01) ==
LOC: NEPE 05:34
DX: M79.1 Myalgia (principal)
CPT/HCPCS: 96372; 99284; J1885; J2270; J2550

== ENCOUNTER 2017-06-27 14:27 | Inpatient (IN) | payer MEDICARE, OTHER ==
[~2017-06-27] VITALS: Ht 162.6 cm; Wt 103.0 kg
[~2017-06-27 14:27] MED LIST changes: +CYCL10TA PO; -HUMALOG SQ; +NOVOLOGP2 SQ; -NYST1000 SWISH-SWAL; -PRED10 PO; +PRED20 PO; -PROM6.256 PO; +ZITHTAB PO
[2017-06-27 14:28] VITALS: BP 172/92; PULSE 120; RESP 22; TEMP 98.6; O2SAT 94
[2017-06-27] MEDS ORDERED: SODIUM CHLORIDE 0.9% FLUSH 10 ML FLUSH IVF PRN (15:45)
[2017-06-27] MEDS ORDERED: methylPREDNISolone SOD SUCC 125 MG/2 ML VIAL IV PUSH ONE (15:45)
[2017-06-27] MEDS ORDERED: RESP: BUDESONIDE 0.5 MG/2 ML NEB NEB ONE (15:45)
--- NOTE | 2017-06-27 15:50 | PD ---
HPI Chief Complaint: Respiratory Symptoms Time Seen by Provider: 15:40 Travel History International Travel<30 days: No Contact w/Intl Traveler<30days: No Traveled to known affect area: No History of Present Illness HPI Patient is a 47-year-old female presenting to emergency for evaluation of shortness of breath and wheezing. Patient states her symptoms started one month ago, she has been seeing her primary care provider who has placed her on antibiotics as well as oral steroids. She was last on Levaquin for 5 days with no improvement. She has a history of asthma/COPD, she's never been a smoker. She denies any pain at this time. She has been hospitalized in the past for status asthmaticus. She was advised by her primary care provider to come to the ED if no improvement in her symptoms. Patient also reports a history of diabetes and states her blood sugar has been elevated due to the oral steroids she's been taking. Patient wears oxygen every night. PFSH Past Medical History Asthma: Yes Anxiety: Yes Cardiac Catheterization: Yes (2011, 2012 3-4 total) Chest Pain: Yes Diabetes: Yes GERD: Yes Headaches: Yes (CHRONIC SINUS INFECTIONS) Hypertension: Yes Musculoskeletal: Yes (lower back problems) Psychiatric: Yes Migraines: Yes Sleep Apnea: Yes : 5 Para: 3 Miscarriage: 1 : 1 Tubal Ligation: Yes Past Surgical History Abdominal Surgery: Yes (hernia repair, mesh, colectomy, colostomy reversal) Gynecologic Surgery: Yes (RIGHT BREAST LUMPECTOMY) Hysterectomy: Yes (2008) Tonsillectomy: Yes Social History Alcohol Use: No Tobacco Use: No (never) Substance Use: No Allergies-Medications (Allergen,Severity, Reaction): Coded Allergies: vancomycin (Unverified Allergy, Intermediate, HIVES, 06/27/17) fentanyl (Unverified Allergy, Mild, HIVES, 06/27/17) *MDRO Multi-Drug Resistant Organism (Verified Adverse Reaction, Unknown, 06/27/17) MRSA PCR screen POSITIVE - 08/29/2015 Reported Meds & Prescriptions Reported Meds & Active Scripts Active Proair Hfa 8.5 GM Inh (Albuterol Sulfate) 90 Mcg/Act Aer 2 Puff INH Q4HR PRN 108 mcg/actuation Tessalon Perles (Benzonatate) 100 Mg Cap 200 Mg PO TID PRN Reported Novolog Inj (Insulin Aspart) 1,000 Unit/10 Ml Vial 40 Units SQ TID Prednisone 20 Mg Tab 40 Mg PO DAILY Take 40 mg (2 tablets) daily for 5 days Zithromax Z-Ethan (Azithromycin) 250 Mg Dspk 250 Mg PO DIRECTED 500 MG (2 tabs) day 1, then 1 tab days 2-5. Flexeril (Cyclobenzaprine HCl) 10 Mg Tab 10 Mg PO TID Metformin (Metformin HCl) 1,000 Mg Tab 1,000 Mg PO BIDPC With meals Singulair (Montelukast Sodium) 10 Mg Tab 10 Mg PO HS Lantus Inj (Insulin Glargine) 1,000 Unit/10 Ml Vial 30 Units SQ HS Lortab (Hydrocodone-Acetaminophen) 7.5-325 Mg Tab 1-2 Tab PO Q4HR PRN Duoneb (Ipratropium-Albuterol Neb) 0.5-2.5 Mg/3 Ml Neb 1 Nebule INH Q2HR Norvasc (Amlodipine Besylate) 5 Mg Tab 10 Mg PO DAILY Xanax (Alprazolam) 2 Mg Tab 2 Mg PO Q8H PRN Ventolin Hfa 18 GM Inh (Albuterol Sulfate) 90 Mcg/Act Aer 2 Puff INH Q4H PRN Advair Diskus Inh (Fluticasone-Salmeterol Inh) 500-50 Mcg/Blist Aer 1 Puff INH BID Rinse mouth after use. Review of Systems Except as stated in HPI: all other systems reviewed are Neg General / Constitutional: No: Fever, Chills Eyes: No: Blurred Vision HENT: No: Headaches Cardiovascular: Positive: Tachycardia, No: Chest Pain or Discomfort Respiratory: Positive: Cough, Shortness of Breath, Wheezing, Orthopnea, Pleuritic Pain Gastrointestinal: No: Nausea, Vomiting, Abdominal Pain Musculoskeletal: No: Myalgias Neurologic: No: Weakness, Dizziness Physical Exam Narrative GENERAL: Well-developed, well-nourished, alert female. Resting comfortably in no acute distress. SKIN: Warm and dry. Face is flushed. HEAD: Atraumatic. Normocephalic. EYES: Pupils equal and round. No scleral icterus. No injection or drainage. ENT: No nasal bleeding or discharge. Mucous membranes pink and moist. NECK: Trachea midline. No JVD. CARDIOVASCULAR: Mild tachycardia RESPIRATORY: No accessory muscle use. Expiratory wheezing throughout lung boyle, tachypneic GASTROINTESTINAL: Abdomen soft, non-tender, nondistended. Hepatic and splenic margins not palpable. MUSCULOSKELETAL: Extremities without clubbing, cyanosis, or edema. No obvious deformities. NEUROLOGICAL: Awake and alert. No obvious cranial nerve deficits. Motor grossly within normal limits. Five out of 5 muscle strength in the arms and legs. Normal speech. PSYCHIATRIC: Appropriate mood and affect; insight and judgment normal. Data Data Last Documented VS Vital Signs Date Time Temp Pulse Resp B/P (MAP) Pulse Ox O2 Delivery O2 Flow Rate FiO2 06/27/17 15:58 96 28 98 Room Air 06/27/17 15:56 (118) 06/27/17 15:56 2.00 06/27/17 14:28 98.6 Orders Orders Electrocardiogram (06/27/17 ) Complete Blood Count With Diff (06/27/17 15:38) Comprehensive Metabolic Panel (06/27/17 15:38) Chest, Pa & Lat (06/27/17 15:38) Ecg Monitoring (06/27/17 15:38) Iv Access Insert/Monitor (06/27/17 15:38) Oximetry (06/27/17 15:38) Oxygen Administration (06/27/17 15:38) Methylprednisolone So Succ Inj (Solumedr (06/27/17 15:45) Albuterol-Ipratropium Neb (Duoneb Neb) (06/27/17 15:45) Sodium Chloride 0.9% Flush (Ns Flush) (06/27/17 15:45) Budesonide Neb (Pulmicort Respule Neb) (06/27/17 15:45) Potassium Chloride (Kcl) (06/27/17 17:15) Admit Order (Ed Use Only) (06/27/17 17:07) Labs Laboratory Tests Test 06/27/17 16:00 White Blood Count 11.3 TH/MM3 Red Blood Count 5.36 MIL/MM3 Hemoglobin 14.4 GM/DL Hematocrit 44.2 % Mean Corpuscular Volume 82.5 FL Mean Corpuscular Hemoglobin 26.9 PG Mean Corpuscular Hemoglobin Concent 32.6 % Red Cell Distribution Width 15.0 % Platelet Count 268 TH/MM3 Mean Platelet Volume 7.7 FL Neutrophils (%) (Auto) 72.3 % Lymphocytes (%) (Auto) 15.2 % Monocytes (%) (Auto) 11.4 % Eosinophils (%) (Auto) 0.4 % Basophils (%) (Auto) 0.7 % Neutrophils # (Auto) 8.1 TH/MM3 Lymphocytes # (Auto) 1.7 TH/MM3 Monocytes # (Auto) 1.3 TH/MM3 Eosinophils # (Auto) 0.0 TH/MM3 Basophils # (Auto) 0.1 TH/MM3 CBC Comment DIFF FINAL Differential Comment Blood Urea Nitrogen 13 MG/DL Creatinine 1.11 MG/DL Random Glucose 57 MG/DL Total Protein 7.2 GM/DL Albumin 3.7 GM/DL Calcium Level 9.5 MG/DL Alkaline Phosphatase 80 U/L Aspartate Amino Transf (AST/SGOT) 11 U/L Alanine Aminotransferase (ALT/SGPT) 16 U/L Total Bilirubin 0.2 MG/DL Sodium Level 142 MEQ/L Potassium Level 3.3 MEQ/L Chloride Level 107 MEQ/L Carbon Dioxide Level 27.9 MEQ/L Anion Gap 7 MEQ/L Estimat Glomerular Filtration Rate 53 ML/MIN MDM Medical Decision Making Medical Screen Exam Complete: Yes Emergency Medical Condition: Yes Interpretation(s) Vital Signs Date Time Temp Pulse Resp B/P (MAP) Pulse Ox O2 Delivery O2 Flow Rate FiO2 06/27/17 14:28 98.6 120 22 172/92 (118) 94 Differential Diagnosis Pneumonia versus bronchitis versus asthma versus status asthmaticus versus other Narrative Course Patient is a 47-year-old female presenting to the emergency family evaluation of shortness of breath and wheezing, this is been ongoing for 1 month, she has several outpatient treatments which have failed. She presents on the advice of her primary doctor. Labs and imaging ordered and pending. Patient was placed on 2 L of oxygen via nasal cannula for an O2 sat of 94% on arrival. Patient was also tachycardic with heart rate of 120. In the room her heart rate is currently at 98. Chest x-ray shows no acute disease. Due to ongoing symptoms as well as hypoxia patient will be admitted at this time. Discussed with Dr. Mccoy who accepted admission. Admit orders placed. Diagnosis Primary Impression: Asthma exacerbation Qualified Codes: J45.901 - Unspecified asthma with (acute) exacerbation Admitting Information Admitting Physician Requests: Admit Condition: Stable Jany Marie [facility] Jun 27, 2017 15:50
[2017-06-27] MEDS: RESP: ALBUTEROL 2.5 MG/IPRATROPIUM 0.5 MG NEB (SCH) INH ×2 (15:52→15:53)
[2017-06-27 16:12] LABS: AUTOMATED NEUTROPHIL # 8.1 TH/MM3 (1.8-7.7); BASOPHIL # 0.1 TH/MM3 (0-0.2); BASOPHIL % 0.7 % (0.0-2.0); EOSINOPHIL % 0.4 % (0.0-4.0); HEMATOCRIT 44.2 % (35.0-46.0); HEMO FLAGS DIFF FINAL; LYMPH % 15.2 % (9.0-44.0); LYMPHOCYTE # 1.7 TH/MM3 (1.0-4.8); MEAN CELL VOLUME 82.5 FL (80.0-100.0); MEAN CORPUSCULAR HEMOGLOBIN 26.9 PG (27.0-34.0); MEAN CORPUSCULAR HGB CONC 32.6 % (32.0-36.0); MONO % 11.4 % (0.0-8.0); NEUT % 72.3 % (16.0-70.0); PLATELET COUNT 268 TH/MM3 (150-450); RED BLOOD COUNT 5.36 MIL/MM3 (4.00-5.30); WHITE BLOOD COUNT 11.3 TH/MM3 (4.0-11.0)
[2017-06-27 16:43] LABS: ALKALINE PHOSPHATASE 80 U/L (45-117); TOTAL BILIRUBIN ADULT 0.2 MG/DL (0.2-1.0)
--- NOTE | 2017-06-27 16:49 | RADRPT ---
EXAM DATE/TIME: 06/27/2017 16:36 [place] COMPARISON: CHEST PA & LAT, August 26, 2015, 11:29. INDICATIONS : Shortness of breath. MEDICAL HISTORY : Chronic obstructive pulmonary disease. Asthma. SURGICAL HISTORY : None. ENCOUNTER: Initial ACUITY: 2 weeks PAIN SCORE: 0/10 LOCATION: Bilateral chest FINDINGS: PA and lateral views of the chest demonstrate the lungs to be symmetrically aerated without evidence of mass, infiltrate or effusion. The cardiomediastinal contours are unremarkable. Osseous structure s are intact. CONCLUSION: No acute disease. Miah Owens MD on June 27, 2017 at 16:45 Board Certified Radiologist. This report was verified electronically.
[2017-06-27 16:58] LABS: ALT (GPT) 16 U/L (10-53); ANION GAP 7 MEQ/L (5-15); AST (GOT) 11 U/L (15-37); BICARBONATE 27.9 MEQ/L (21.0-32.0); BLOOD UREA NITROGEN 13 MG/DL (7-18); CHLORIDE 107 MEQ/L (98-107); GLOMERULAR FILTRATION RATE 53 ML/MIN (>89); POTASSIUM 3.3 MEQ/L (3.5-5.1); SODIUM (NA) 142 MEQ/L (136-145)
[2017-06-27] MEDS ORDERED: POTASSIUM CHLORIDE 10 MEQ CONTROLLED RELEASE TAB PO ONE (17:15)
[2017-06-27] MEDS ORDERED: HYDR-3580 PO (17:25)
[2017-06-27] MEDS ORDERED: PROM6.256 PO (17:25)
--- NOTE | 2017-06-27 17:32 | HHI.HP ---
HPI Service CP Hospitalists Primary Care Physician Georges Hdez MD Admission Diagnosis ASTHMA EXACERBATION Chief Complaint: sob Travel History International Travel<30 Days: No Contact w/Intl Traveler <30 Da: No Traveled to Known Affected Are: No History of Present Illness Mrs. Giles is a 47 y/o WF with severe asthma diagnosed around 10years ago, diagnosed through PFTs per the pt, and is chronically on steroid therapy up to 40mg per day. Pt reports having a flare of her asthma over past 2-3 weeks and coughing up green sputum. She has been to urgent care and to pcp. She has had several shots of steroid in the office and again takes 40mg prednisone per day. She has had 2 zacks and currently on levaquin. Decided to come here as she still has significant sob and wheezing.. In ED has had solumedrol and nebs. Review of Systems Other sob/cough Past Family Social History Past Medical History Asthma/COPD, severe chronic on high-dose chronic steroids, follows with Dr. Guerrero hx thermoplasty to lung Hypertension Diabetes Hypothyroidism GERD Migraines Chronic low back pain Obesity Sleep apnea Hx of perforated diverticulosis Hx of wound infections from multiple abdominal surgeries with MRSA infections and wound vac placement Past Surgical History Partial colectomy for perforated diverticulosis Had colostomy and reversal Multiple abdominal surgeries for wound infections, mesh removal Fiberoptic bronchoscopy in 2005 for asthma Partial hysterectomy, pt still has ovaries Wrist surgery Bilateral breast lumpectomies D&C Sinus surgery Tubal ligation Tonsillectomy Reported Medications Promethazine-Codeine Liq 6.25-10 Mg/5 Ml Syrp 10 Ml PO Q4H PRN Hydrocodone-Acetaminophen 7.5 Mg-325 Mg Tab 2 Tab PO Q4H PRN Novolog Inj (Insulin Aspart) 1,000 Unit/10 Ml Vial 40 Units SQ TID Prednisone 40mg daily Flexeril (Cyclobenzaprine HCl) 10 Mg Tab 10 Mg PO TID Metformin (Metformin HCl) 1,000 Mg Tab 1,000 Mg PO BIDPC With meals Singulair (Montelukast Sodium) 10 Mg Tab 10 Mg PO HS Lantus Inj (Insulin Glargine) 1,000 Unit/10 Ml Vial 40 Units SQ HS Duoneb (Ipratropium-Albuterol Neb) 0.5-2.5 Mg/3 Ml Neb 1 Nebule INH Q2HR Norvasc (Amlodipine Besylate) 5 Mg Tab 10 Mg PO DAILY Xanax (Alprazolam) 2 Mg Tab 2 Mg PO Q8H PRN Ventolin Hfa 18 GM Inh (Albuterol Sulfate) 90 Mcg/Act Aer 2 Puff INH Q4H PRN Advair Diskus Inh (Fluticasone-Salmeterol Inh) 500-50 Mcg/Blist Aer 1 Puff INH BID Rinse mouth after use. lisinipril 20mg bid Allergies: Coded Allergies: vancomycin (Unverified Allergy, Intermediate, HIVES, 06/27/17) fentanyl (Unverified Allergy, Mild, HIVES, 06/27/17) *MDRO Multi-Drug Resistant Organism (Verified Adverse Reaction, Unknown, 06/27/17) MRSA PCR screen POSITIVE - 08/29/2015 Family History Mother with hx of CAD Brother with cancer unknown type Father with hx of CAD/WA, bypass surgery Social History Never a smoker Denies any alcohol or illicit drug use Lives with and son Physical Exam Vital Signs heart reg lung bilateral exp wheezing abd s/nt ext no pitting Vital Signs Date Time Temp Pulse Resp B/P (MAP) Pulse Ox O2 Delivery O2 Flow Rate FiO2 06/27/17 15:58 96 28 98 Room Air 06/27/17 15:56 (118) 06/27/17 15:56 98 Nasal Cannula 2.00 06/27/17 14:28 98.6 120 22 172/92 (118) 94 Laboratory Laboratory Tests Test 06/27/17 16:00 White Blood Count 11.3 Red Blood Count 5.36 Hemoglobin 14.4 Hematocrit 44.2 Mean Corpuscular Volume 82.5 Mean Corpuscular Hemoglobin 26.9 Mean Corpuscular Hemoglobin Concent 32.6 Red Cell Distribution Width 15.0 Platelet Count 268 Mean Platelet Volume 7.7 Neutrophils (%) (Auto) 72.3 Lymphocytes (%) (Auto) 15.2 Monocytes (%) (Auto) 11.4 Eosinophils (%) (Auto) 0.4 Basophils (%) (Auto) 0.7 Neutrophils # (Auto) 8.1 Lymphocytes # (Auto) 1.7 Monocytes # (Auto) 1.3 Eosinophils # (Auto) 0.0 Basophils # (Auto) 0.1 CBC Comment DIFF FINAL Differential Comment Blood Urea Nitrogen 13 Creatinine 1.11 Random Glucose 57 Total Protein 7.2 Albumin 3.7 Calcium Level 9.5 Alkaline Phosphatase 80 Aspartate Amino Transf (AST/SGOT) 11 Alanine Aminotransferase (ALT/SGPT) 16 Total Bilirubin 0.2 Sodium Level 142 Potassium Level 3.3 Chloride Level 107 Carbon Dioxide Level 27.9 Anion Gap 7 Estimat Glomerular Filtration Rate 53 Result Diagram: 06/27/17 1600 06/27/17 1600 Caprini VTE Risk Assessment Caprini Risk Assessment Model Point Value = 1 Point Value = 2 Point Value = 3 Point Value = 5 Age 41-60 Minor surgery BMI > 25 kg/m2 Swollen legs Varicose veins or History of unexplained or recurrent spontaneous Oral contraceptives or hormone replacement Sepsis (< 1 month) Serious lung disease, including pneumonia (< 1 month) Abnormal pulmonary function Acute myocardial infarction Congestive heart failure (< 1 month) History of inflammatory bowel disease Medical patient at bed rest Age 61-74 Arthroscopic surgery Major open surgery (> 45 min) Laparoscopic surgery (> 45 min) Malignancy Confined to bed (> 72 hours) Immobilizing plaster cast Central venous access Age >= 75 History of VTE Family history of VTE Factor V Leiden Prothrombin [id number] Lupus anticoagulant Anticardiolipin antibodies Elevated serum homocysteine Heparin-induced thrombocytopenia Other congenital or acquired thrombophilia Stroke (< 1 month) Elective arthroplasty Hip, pelvis, or leg fracture Acute spinal cord injury (< 1 month) Prophylaxis Regimen Total Risk Factor Score Risk Level Prophylaxis Regimen 0-1 Low Early ambulation 2 Moderate Order ONE of the following: *Sequential Compression Device (SCD) *Heparin 5000 units SQ BID 3-4 Higher Order ONE of the following medications: *Heparin 5000 units SQ TID *Enoxaparin/Lovenox 40 mg SQ daily (WT < 150 kg, CrCl > 30 mL/min) *Enoxaparin/Lovenox 30 mg SQ daily (WT < 150 kg, CrCl > 10-29 mL/min) *Enoxaparin/Lovenox 30 mg SQ BID (WT < 150 kg, CrCl > 30 mL/min) AND/OR *Sequential Compression Device (SCD) 5 or more Highest Order ONE of the following medications: *Heparin 5000 units SQ TID (Preferred with Epidurals) *Enoxaparin/Lovenox 40 mg SQ daily (WT < 150 kg, CrCl > 30 mL/min) *Enoxaparin/Lovenox 30 mg SQ daily (WT < 150 kg, CrCl > 10-29 mL/min) *Enoxaparin/Lovenox 30 mg SQ BID (WT < 150 kg, CrCl > 30 mL/min) AND *Sequential Compression Device (SCD) Assessment and Plan Problem List: (1) Asthma exacerbation ICD Codes: J45.901 - Asthma with acute exacerbation Status: Acute Plan: 1. Asthma exacerbation continue solumedrol/nebs/abx dvt prophylaxis oxygen 2. htn cont norvasc and lisinipril as tolerated 3.chronic pain cont her home narcotic regimen 4. anxiety cont home xanax dose 5. dm 2. steroid exacerbation cont basal insulin levemir ssi and her oha (2) Hypertension ICD Codes: I10 - Hypertension Status: Chronic (3) DM (diabetes mellitus) ICD Codes: E11.9 - Type 2 diabetes mellitus without complications Status: Chronic (4) GERD (gastroesophageal reflux disease) ICD Codes: K21.9 - Gastro-esophageal reflux disease without esophagitis Status: Chronic (5) Hypothyroidism ICD Codes: E03.9 - Hypothyroidism Status: Chronic (6) Hypokalemia ICD Codes: E87.6 - Hypokalemia Status: Acute Physician Certification 2 Midnight Certification Type: Admission for Inpatient Services Order for Inpatient Services 3The services are ordered in accordance with Medicare regulations or non- Medicare payer requirements, as applicable. In the case of services not specified as inpatient-only, they are appropriately provided as inpatient services in accordance with the 2-midnight benchmark. Estimated LOS (days): 3 3 days is the estimated time the patient will need to remain in the hospital, assuming treatment plan goals are met and no additional complications. Post-Hospital Plan: Home Problem Qualifiers (1) Asthma exacerbation: Qualified Codes: J45.901 - Unspecified asthma with (acute) exacerbation Christopher Mcgill MD Jun 27, 2017 17:32
[2017-06-27] MEDS ORDERED: cloNIDine HCL 0.1 MG TAB PO PRN (17:45)
[2017-06-27] MEDS ORDERED: RESP: ALBUTEROL 2.5 MG/IPRATROPIUM 0.5 MG NEB (PRN) NEB (17:45)
[2017-06-27] MEDS ORDERED: PROMETHAZINE/CODEINE 6.25 MG/10 MG/5 ML CUP PO ONE (17:45)
[2017-06-27 17:50] VITALS: O2SAT 95
[2017-06-27] MEDS: metFORMIN HCL 500 MG TAB PO SCH (18:07)
[2017-06-27] MEDS: ACETAMINOPHEN/HYDROcodone 325 MG/7.5 MG TAB PO SCH ×2 (18:07→22:35)
[2017-06-27] MEDS: CYCLOBENZAPRINE HCL 10 MG TAB PO SCH (18:07)
[2017-06-27] MEDS ORDERED: GLUCAGON 1 MG/ML VIAL OTHER PRN (18:15)
[2017-06-27] MEDS ORDERED: DEXTROSE 50% IN WATER 50 ML VIAL(D50) IV PUSH PRN (18:15)
--- NOTE | 2017-06-27 18:30 | PD ---
Data Data Last Documented VS Vital Signs Date Time Temp Pulse Resp B/P (MAP) Pulse Ox O2 Delivery O2 Flow Rate FiO2 06/27/17 15:58 96 28 98 Room Air 06/27/17 15:56 (118) 06/27/17 15:56 2.00 06/27/17 14:28 98.6 Orders Orders Electrocardiogram (06/27/17 ) Complete Blood Count With Diff (06/27/17 15:38) Comprehensive Metabolic Panel (06/27/17 15:38) Chest, Pa & Lat (06/27/17 15:38) Ecg Monitoring (06/27/17 15:38) Iv Access Insert/Monitor (06/27/17 15:38) Oximetry (06/27/17 15:38) Oxygen Administration (06/27/17 15:38) Methylprednisolone So Succ Inj (Solumedr (06/27/17 15:45) Albuterol-Ipratropium Neb (Duoneb Neb) (06/27/17 15:45) Sodium Chloride 0.9% Flush (Ns Flush) (06/27/17 15:45) Budesonide Neb (Pulmicort Respule Neb) (06/27/17 15:45) Potassium Chloride (Kcl) (06/27/17 17:15) Admit Order (Ed Use Only) (06/27/17 17:07) Labs Laboratory Tests Test 06/27/17 16:00 White Blood Count 11.3 TH/MM3 Red Blood Count 5.36 MIL/MM3 Hemoglobin 14.4 GM/DL Hematocrit 44.2 % Mean Corpuscular Volume 82.5 FL Mean Corpuscular Hemoglobin 26.9 PG Mean Corpuscular Hemoglobin Concent 32.6 % Red Cell Distribution Width 15.0 % Platelet Count 268 TH/MM3 Mean Platelet Volume 7.7 FL Neutrophils (%) (Auto) 72.3 % Lymphocytes (%) (Auto) 15.2 % Monocytes (%) (Auto) 11.4 % Eosinophils (%) (Auto) 0.4 % Basophils (%) (Auto) 0.7 % Neutrophils # (Auto) 8.1 TH/MM3 Lymphocytes # (Auto) 1.7 TH/MM3 Monocytes # (Auto) 1.3 TH/MM3 Eosinophils # (Auto) 0.0 TH/MM3 Basophils # (Auto) 0.1 TH/MM3 CBC Comment DIFF FINAL Differential Comment Blood Urea Nitrogen 13 MG/DL Creatinine 1.11 MG/DL Random Glucose 57 MG/DL Total Protein 7.2 GM/DL Albumin 3.7 GM/DL Calcium Level 9.5 MG/DL Alkaline Phosphatase 80 U/L Aspartate Amino Transf (AST/SGOT) 11 U/L Alanine Aminotransferase (ALT/SGPT) 16 U/L Total Bilirubin 0.2 MG/DL Sodium Level 142 MEQ/L Potassium Level 3.3 MEQ/L Chloride Level 107 MEQ/L Carbon Dioxide Level 27.9 MEQ/L Anion Gap 7 MEQ/L Estimat Glomerular Filtration Rate 53 ML/MIN MDM Supervised Visit with ROLANDA: Yes Narrative Course The history, exam, and medical decision-making in the associated mid-level provider note were completed with my assistance. I reviewed and agree with the findings presented. I attest that I had a [id number] encounter with the patient on the same day, and personally performed and documented my assessment and findings in the medical record. *My assessment and Findings: 47 year-old woman, presents to the emergency department with worsening asthma symptoms. Extensive history. She's been having outpatient treatment including parenteral steroid injections and is not improving. Moderate symptoms on exam now. Recommend admission for worsening asthma exacerbation. Diagnosis Primary Impression: Asthma exacerbation Qualified Codes: J45.901 - Unspecified asthma with (acute) exacerbation Condition: Brent Hernandez MD Jun 27, 2017 18:30
[2017-06-27 20:00] VITALS: BP 154/74; PULSE 108; RESP 18; TEMP 98.6; O2SAT 94
[2017-06-27] MEDS: RESP: BUDESONIDE 0.5 MG/2 ML NEB NEB SCH (20:00)
[2017-06-27] MEDS: RESP: ALBUTEROL 2.5 MG/IPRATROPIUM 0.5 MG NEB (SCH) NEB (20:27)
[2017-06-27 20:28] VITALS: O2SAT 98
[2017-06-27] MEDS: INSULIN ASPART SUPPLEMENTAL SCALE SQ SCH (21:00)
[2017-06-27] MEDS: MONTELUKAST SODIUM 10 MG TAB PO SCH (22:20)
[2017-06-27] MEDS: methylPREDNISolone SOD SUCC 125 MG/2 ML VIAL IV PUSH SCH (22:20)
[2017-06-27] MEDS: ALPRAZolam 1 MG TAB PO PRN (22:20)
[2017-06-27] MEDS: INSULIN DETEMIR 100 UNITS/ML VIAL SQ SCH (22:34)
[2017-06-27] MEDS: LEVOFLOXACIN 500 MG PREMIX INJ 100 ML IV SCH (22:36)
[2017-06-28] VITALS (10 sets, daily range): BP systolic 118–156; BP diastolic 70–78; PULSE 72–101; RESP 16–20; TEMP 97.4–98.3; O2SAT 91–100
[2017-06-28] MEDS: RESP: ALBUTEROL 2.5 MG/IPRATROPIUM 0.5 MG NEB (SCH) NEB ×6 (00:44→19:39)
[2017-06-28] MEDS: ACETAMINOPHEN/HYDROcodone 325 MG/7.5 MG TAB PO SCH ×6 (01:23→20:41)
[2017-06-28] MEDS: methylPREDNISolone SOD SUCC 125 MG/2 ML VIAL IV PUSH SCH ×3 (02:00→12:48)
[2017-06-28] MEDS: PROMETHAZINE/CODEINE 6.25 MG/10 MG/5 ML CUP PO PRN ×2 (04:56→12:48)
[2017-06-28] MEDS: INSULIN ASPART SUPPLEMENTAL SCALE SQ SCH ×4 (08:00→21:09)
[2017-06-28] MEDS: ALPRAZolam 1 MG TAB PO PRN ×2 (08:03→16:59)
[2017-06-28] MEDS: metFORMIN HCL 500 MG TAB PO SCH ×2 (08:03→16:58)
[2017-06-28] MEDS: CYCLOBENZAPRINE HCL 10 MG TAB PO SCH ×3 (08:03→16:58)
[2017-06-28 08:15] LABS: BICARBONATE 21.4 MEQ/L (21.0-32.0); POTASSIUM 4.6 MEQ/L (3.5-5.1)
[2017-06-28] MEDS ORDERED: INFLUENZA VIRUS VACCINE (QUADRIVALENT) 0.5 ML SYR IM ONE (10:00)
[2017-06-28] MEDS ORDERED: PNEUMOCOCCAL POLYVALENT INJ 25 MCG/0.5 ML SYR IM ONE (10:00)
[2017-06-28] MEDS: RESP: BUDESONIDE 0.5 MG/2 ML NEB NEB SCH ×2 (12:25→19:49)
--- NOTE | 2017-06-28 14:58 | HHI.PR ---
Subjective Remarks Pt feels that her breathing is improving. She complains of sore throat felt to be secondary to her coughing Pt wants to go home tomorrow as she is leaving on Wednesday to go to [place] for a few days Pt denies any sputum production She is currently off supplemental O2 and is on RA Objective Vitals Vital Signs Date Time Temp Pulse Resp B/P (MAP) Pulse Ox O2 Delivery O2 Flow Rate FiO2 06/28/17 12:27 98 21 06/28/17 11:59 98.1 101 16 143/75 (97) 96 06/28/17 08:34 99 21 06/28/17 08:00 98.1 101 16 156/78 (104) 91 06/28/17 04:00 97.4 87 18 144/74 (97) 94 06/28/17 00:48 95 21 06/28/17 00:00 98.3 90 18 118/70 (86) 95 06/27/17 20:28 98 21 06/27/17 20:00 98.6 108 18 154/74 (100) 94 06/27/17 18:18 06/27/17 17:50 95 Nasal Cannula 2.50 06/27/17 15:58 96 28 98 Room Air 06/27/17 15:56 (118) 06/27/17 15:56 98 Nasal Cannula 2.00 Result Diagram: 06/27/17 1600 06/28/17 0657 Other Results Laboratory Tests Test 06/27/17 16:00 06/28/17 06:57 White Blood Count 11.3 TH/MM3 Red Blood Count 5.36 MIL/MM3 Hemoglobin 14.4 GM/DL Hematocrit 44.2 % Mean Corpuscular Volume 82.5 FL Mean Corpuscular Hemoglobin 26.9 PG Mean Corpuscular Hemoglobin Concent 32.6 % Red Cell Distribution Width 15.0 % Platelet Count 268 TH/MM3 Mean Platelet Volume 7.7 FL Neutrophils (%) (Auto) 72.3 % Lymphocytes (%) (Auto) 15.2 % Monocytes (%) (Auto) 11.4 % Eosinophils (%) (Auto) 0.4 % Basophils (%) (Auto) 0.7 % Neutrophils # (Auto) 8.1 TH/MM3 Lymphocytes # (Auto) 1.7 TH/MM3 Monocytes # (Auto) 1.3 TH/MM3 Eosinophils # (Auto) 0.0 TH/MM3 Basophils # (Auto) 0.1 TH/MM3 CBC Comment DIFF FINAL Differential Comment Blood Urea Nitrogen 13 MG/DL 21 MG/DL Creatinine 1.11 MG/DL 1.12 MG/DL Random Glucose 57 MG/DL 316 MG/DL Total Protein 7.2 GM/DL Albumin 3.7 GM/DL Calcium Level 9.5 MG/DL 9.5 MG/DL Alkaline Phosphatase 80 U/L Aspartate Amino Transf (AST/SGOT) 11 U/L Alanine Aminotransferase (ALT/SGPT) 16 U/L Total Bilirubin 0.2 MG/DL Sodium Level 142 MEQ/L 136 MEQ/L Potassium Level 3.3 MEQ/L 4.6 MEQ/L Chloride Level 107 MEQ/L 104 MEQ/L Carbon Dioxide Level 27.9 MEQ/L 21.4 MEQ/L Anion Gap 7 MEQ/L 11 MEQ/L Estimat Glomerular Filtration Rate 53 ML/MIN 52 ML/MIN Imaging Last Impressions Chest X-Ray 06/27/17 6768 Signed Impressions: Service Date/Time: Tuesday, June 27, 2017 16:36 - CONCLUSION: No acute disease. Miah Owens MD Objective Remarks General: NAD, AAOx3 ENT: No evidence of thrush on examination Chest: Bilateral expiratory wheeze Cardiac: Regular Abd: +BS, soft ND/NT Ext: No edema A/P Problem List: (1) Asthma exacerbation ICD Codes: J45.901 - Asthma with acute exacerbation Status: Acute Plan: - Pt is a 47 y/o WF with severe asthma diagnosed around 10years ago, diagnosed through PFTs per the pt, and is chronically on steroid therapy up to 40mg per day. Pt reports having a flare of her asthma over past 2-3 weeks and coughing up green sputum. She has been to urgent care and to pcp. She has had several shots of steroid in the office and again takes 40mg prednisone per day. She has had 2 Z-paks and was on Levaquin at the time of admission. 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 - DVT prophylaxis with SCDs (2) Hypertension ICD Codes: I10 - Hypertension Status: Chronic Plan: - Cont Norvasc and Lisinopril at home doses - Monitor (3) DM (diabetes mellitus) ICD Codes: E11.9 - Type 2 diabetes mellitus without complications Status: Chronic Plan: - Monitor for steroid induced hyperglycemia - Cont basal insulin, Levemir 40 units HS - Cont. NovoLog SSI, high dose - Cont. Metformin 1000mg po BID - Accu checks (4) GERD (gastroesophageal reflux disease) ICD Codes: K21.9 - Gastro-esophageal reflux disease without esophagitis Status: Chronic Plan: - Cont. PPI (5) Hypothyroidism ICD Codes: E03.9 - Hypothyroidism Status: Chronic Plan: - Home meds continued (6) Hypokalemia ICD Codes: E87.6 - Hypokalemia Status: Acute Plan: - Improved with replacement Assessment and Plan Patient examined. Assessment and plan formulated with Noelle Hammer PA-C. I agree with the above. Problem Qualifiers (1) Asthma exacerbation: Qualified Codes: J45.901 - Unspecified asthma with (acute) exacerbation (2) DM (diabetes mellitus): (3) GERD (gastroesophageal reflux disease): Qualified Codes: K21.9 - Gastro-esophageal reflux disease without esophagitis Noelle Hammer Jun 28, 2017 14:58 Geoffrey Gonzalez DO Jun 30, 2017 14:12
[2017-06-28] MEDS ORDERED: MENTHOL LOZENGE BUCCAL PRN (15:30)
[2017-06-28] MEDS: LEVOFLOXACIN 500 MG PREMIX INJ 100 ML IV SCH (16:59)
--- NOTE | 2017-06-28 17:12 | EKG ---
Date Performed: 06/27/2017 Time Performed: 14:42:08 PTAGE: 47 years EKG: SINUS TACHYCARDIA Since previous tracing, no significant change noted ABNORMAL RHYTHM ECG PREVIOUS TRACING : 09/28/2016 12.21 DOCTOR: Ifeanyi Zhao Interpretating Date/Time 06/28/2017 17:10:49
[2017-06-28] MEDS: MONTELUKAST SODIUM 10 MG TAB PO SCH (20:41)
[2017-06-28] MEDS: INSULIN DETEMIR 100 UNITS/ML VIAL SQ SCH (21:00)
[2017-06-28] MEDS: BUDESONIDE-FORMOTEROL 160/4.5 MCG INHALER INH SCH (21:00)
[2017-06-28] MEDS: methylPREDNISolone SOD SUCC 40 MG/1 ML VIAL IV PUSH SCH (21:08)
[2017-06-29] VITALS (8 sets, daily range): BP systolic 102–154; BP diastolic 68–97; PULSE 84–102; RESP 17–19; TEMP 97.1–98.4; O2SAT 94–96
[2017-06-29] MEDS: ALPRAZolam 1 MG TAB PO PRN ×3 (00:29→16:48)
[2017-06-29] MEDS: ACETAMINOPHEN/HYDROcodone 325 MG/7.5 MG TAB PO SCH ×6 (00:29→20:41)
[2017-06-29] MEDS: RESP: ALBUTEROL 2.5 MG/IPRATROPIUM 0.5 MG NEB (SCH) NEB ×6 (02:09→19:45)
[2017-06-29] MEDS: methylPREDNISolone SOD SUCC 40 MG/1 ML VIAL IV PUSH SCH ×4 (04:21→20:41)
[2017-06-29] MEDS: PROMETHAZINE/CODEINE 6.25 MG/10 MG/5 ML CUP PO PRN (05:48)
--- NOTE | 2017-06-29 06:17 | MB ---
cc: ZEEYANETHALIDA DATE OF CONSULTATION 06/28/2017 REASON FOR CONSULTATION Asthma with respiratory distress. HISTORY OF PRESENT ILLNESS This is a 47-year-old obese white female with a history of asthma. She has had recurrent exacerbations of asthma in the past. She developed a respiratory infection this past week and started to have increasing chest congestion, wheezing, yellow sputum and went to the Urgent Care. The patient was given prednisone at 40 mg per day and a Z-Ethan but she did not improve and she thus came to the emergency room and was subsequently admitted. The chest x-ray upon admission showed no active disease. She was given IV Solu-Medrol and oxygen and today she feels a little better. She still has a cough. She is wheezing. She is orthopneic and she does have some postnasal drip with sinus drainage. There are no fevers or chills or night sweats. PAST HISTORY 1. Recurrent exacerbations of asthma and chronic bronchitis. 2. History of thermoplasty for her severe asthma. 3. History of diabetes mellitus. 4. Hypertension. 5. History of hypothyroidism. 6. Gastroesophageal reflux. 7. She has chronic back pain. 8. Migraines. 9. Seep apnea. PAST SURGICAL HISTORY Surgery also includes - 1. Multiple abdominal surgeries following exploratory laparotomy for perforated diverticulosis. 2. She has been treated MRSA infection of the abdomen with chronic drainage from the abdominal wound. 3. Surgery also includes partially colectomy with colostomy placement and reversal and chronic drainage from the abdominal wound infection. 4. Removal of some mesh after repair of hernia. 5. She has had partial hysterectomy. 6. Surgery on her breast for lumps. 7. Wrist repair with. 8. Tubal ligation. 9. Tonsillectomy remotely. 10. D&C. HABITS The patient does not smoke and alcohol use is minimal. ALLERGIES VANCOMYCIN. FENTANYL. FAMILY HISTORY Mother with coronary artery disease. One brother with malignancy. SYSTEMS REVIEW The patient is overweight. She has postnasal drip. She has sleep apnea. She has epigastric distress and nausea. She has no urinary symptoms. She has no leg swelling or calf muscle pains. She has some anxiety attacks and denies skin lesions. The other system review is negative. MEDICATIONS Med list was reviewed from the chart, also includes - 1. Promethazine. 2. Codeine. 3. Cough syrup p.r.n. 4. Flexeril 10 mg t.i.d. 5. Metformin 1000 mg b.i.d. 6. Singulair 10 mg a day. 7. Xanax 2 mg q.8 hours p.r.n. 8. Advair 500/50 one puff b.i.d. 9. Lisinopril 20 mg b.i.d. 10. Lantus insulin 40 units subcu at bedtime. 11. Prednisone 40 mg a day. PHYSICAL EXAMINATION GENERAL: This is an obese middle-aged white female who is alert, in no acute distress. VITAL SIGNS: Blood pressure 148/90, pulse is 100, respirations 22, temperature 97.6. HEENT: Head normocephalic. Pupils are reactive. Nasal mucosa injected. Throat was also injected. NECK: Supple without venous distension. No lymphadenopathy or thyromegaly. CHEST: Equal movements with decreased breath sounds at the bases. Expiratory wheezes in the upper lung boyle. Prolonged expirations. HEART SOUNDS: Regular S1-S2. No murmur. No S3. ABDOMEN: Soft, obese, without masses. There are scars of multiple surgeries and dressing over the mid-abdomen. Bowel sounds are active. No organomegaly. EXTREMITIES: No edema. Peripheral pulses are well felt. Reflexes are 1+ with no gross motor deficits. Cranial nerves grossly intact. SKIN: No lesions. IMPRESSION 1. Asthmatic bronchitis. 2. Allergic rhinitis. 3. Chronic obstructive pulmonary disease. 4. Diabetes mellitus. 5. Hypertension. 6. Hypothyroidism. 7. Obstructive sleep apnea and obesity. PLAN 1. The patient will be maintained on Solu-Medrol at 40 mg IV q. 6. 2. 02 2 liters p.r.n. 3. Nebulized DuoNeb solution q.i.d. and p.r.n. 4. Continue with antibiotic therapy including Levaquin 500 mg per day. 5. A PFT will be done at the bedside. 6. The patient will be placed on Symbicort 160/4.5 two puffs twice a day. 7. If she is clinically stable we could switch her to oral medications in the a.m. Thank you Dr. Gonzalez for this consultation. MD YOLANDA De La Fuente/CECI /8:00 PM /6:01 AM
[2017-06-29] MEDS: INSULIN ASPART SUPPLEMENTAL SCALE SQ SCH ×4 (08:00→21:37)
[2017-06-29] MEDS: BUDESONIDE-FORMOTEROL 160/4.5 MCG INHALER INH SCH ×2 (08:23→20:41)
[2017-06-29] MEDS: metFORMIN HCL 500 MG TAB PO SCH ×2 (08:24→17:21)
[2017-06-29] MEDS: CYCLOBENZAPRINE HCL 10 MG TAB PO SCH ×3 (08:24→17:21)
[2017-06-29] MEDS: RESP: BUDESONIDE 0.5 MG/2 ML NEB NEB SCH ×2 (08:53→19:45)
--- NOTE | 2017-06-29 14:02 | HHI.PR ---
Subjective Remarks Pt with continued wheezing and SOB. Objective Vitals Vital Signs Date Time Temp Pulse Resp B/P (MAP) Pulse Ox O2 Delivery O2 Flow Rate FiO2 06/29/17 12:00 98.2 101 17 154/80 (104) 94 06/29/17 08:53 94 21 06/29/17 08:00 97.8 94 17 136/97 (110) 94 06/29/17 05:00 98.0 84 17 142/72 (95) 96 06/29/17 00:23 98.4 91 17 151/71 (97) 95 06/28/17 20:42 97.8 98 17 133/78 (96) 95 06/28/17 16:00 97.8 72 20 132/73 (92) 100 06/28/17 15:17 96 21 Result Diagram: 06/27/17 1600 06/28/17 0657 Imaging Last Impressions Chest X-Ray 06/27/17 1538 Signed Impressions: Service Date/Time: Tuesday, June 27, 2017 16:36 - CONCLUSION: No acute disease. Miah Owens MD Objective Remarks General: NAD, AAOx3 ENT: No evidence of thrush on examination Chest: Bilateral expiratory wheeze Cardiac: Regular Abd: +BS, soft ND/NT Ext: No edema A/P Problem List: (1) Asthma exacerbation ICD Codes: J45.901 - Asthma with acute exacerbation Status: Acute Plan: - comgmt with Pulm Med, Dr. Hutchins - Pt is a 47 y/o WF with severe asthma diagnosed around 10years ago, diagnosed through PFTs per the pt, and is chronically on steroid therapy up to 40mg per day. Pt reports having a flare of her asthma over past 2-3 weeks and coughing up green sputum. She has been to urgent care and to pcp. She has had several shots of steroid in the office and again takes 40mg prednisone per day. She has had 2 Z-paks and was on Levaquin at the time of admission. - Pt was given Solu-Medrol and Duonebs in the ED - Pt was continued on Solu-Medrol 40mg Q6H, Duonebs Q4H scheduled, Budesonide Nebs BID, and Levaquin - Pt has been weaned off supplemental O2 - symbicort - PFTs ordered - observe for clinical improvement. - anticipate that pt will require another 2-3 days of hospitalization - DVT prophylaxis with SCDs (2) Hypertension ICD Codes: I10 - Hypertension Status: Chronic Plan: - Cont Norvasc and Lisinopril at home doses - Monitor (3) DM (diabetes mellitus) ICD Codes: E11.9 - Type 2 diabetes mellitus without complications Status: Chronic Plan: - blood sugars elevated from baseline d/t steroids - Change Levemir to 30 units bid - resume scheduled novolog to 15 units TID (takes 40 units TID at home) - Cont. NovoLog SSI, high dose - Cont. Metformin 1000mg po BID - Accu checks (4) GERD (gastroesophageal reflux disease) ICD Codes: K21.9 - Gastro-esophageal reflux disease without esophagitis Status: Chronic Plan: - Cont. PPI (5) Hypothyroidism ICD Codes: E03.9 - Hypothyroidism Status: Chronic Plan: - Home meds continued (6) Hypokalemia ICD Codes: E87.6 - Hypokalemia Status: Acute Plan: - Improved with replacement Problem Qualifiers (1) Asthma exacerbation: Qualified Codes: J45.901 - Unspecified asthma with (acute) exacerbation (2) DM (diabetes mellitus): (3) GERD (gastroesophageal reflux disease): Qualified Codes: K21.9 - Gastro-esophageal reflux disease without esophagitis Geoffrey Gonzalez DO Jun 29, 2017 14:02
[2017-06-29] MEDS: INSULIN ASPART 1,000 UNITS/10 ML VIAL SQ SCH (17:00)
[2017-06-29] MEDS: LEVOFLOXACIN 500 MG PREMIX INJ 100 ML IV SCH (17:21)
[2017-06-29] MEDS: MONTELUKAST SODIUM 10 MG TAB PO SCH (20:40)
[2017-06-29] MEDS: INSULIN DETEMIR 100 UNITS/ML VIAL SQ SCH (21:37)
[2017-06-30] VITALS: BP 159/83; PULSE 101; RESP 20; TEMP 98; O2SAT 96
[2017-06-30] MEDS: ACETAMINOPHEN/HYDROcodone 325 MG/7.5 MG TAB PO SCH ×4 (00:30→13:28)
[2017-06-30] MEDS: ALPRAZolam 1 MG TAB PO PRN ×2 (00:31→09:00)
[2017-06-30] MEDS: PROMETHAZINE/CODEINE 6.25 MG/10 MG/5 ML CUP PO PRN ×2 (00:31→09:11)
[2017-06-30] MEDS: RESP: ALBUTEROL 2.5 MG/IPRATROPIUM 0.5 MG NEB (SCH) NEB ×4 (01:30→12:00)
[2017-06-30] MEDS: methylPREDNISolone SOD SUCC 40 MG/1 ML VIAL IV PUSH SCH ×2 (01:57→09:11)
[2017-06-30 04:00] VITALS: BP 146/81; PULSE 83; RESP 18; TEMP 97.4; O2SAT 94
[2017-06-30 07:45] VITALS: BP 140/83; PULSE 86; RESP 20; TEMP 97.6; O2SAT 92
[2017-06-30] MEDS: INSULIN ASPART SUPPLEMENTAL SCALE SQ SCH ×2 (08:00→12:00)
[2017-06-30] MEDS: RESP: BUDESONIDE 0.5 MG/2 ML NEB NEB SCH (08:00)
[2017-06-30] MEDS: INSULIN ASPART 1,000 UNITS/10 ML VIAL SQ SCH ×2 (08:00→12:00)
[2017-06-30] MEDS: INSULIN DETEMIR 100 UNITS/ML VIAL SQ SCH (09:00)
[2017-06-30] MEDS: metFORMIN HCL 500 MG TAB PO SCH (09:11)
[2017-06-30] MEDS: CYCLOBENZAPRINE HCL 10 MG TAB PO SCH ×2 (09:12→13:28)
[2017-06-30] MEDS: BUDESONIDE-FORMOTEROL 160/4.5 MCG INHALER INH SCH (09:19)
[2017-06-30 12:30] VITALS: BP 132/81; PULSE 99; RESP 20; TEMP 98.4; O2SAT 94
--- NOTE | 2017-06-30 13:25 | HHI.PR ---
Subjective Remarks Wants to go home . Feels better. OffO2 sat 97. Off IV steroids Objective Vital Signs Date Time Temp Pulse Resp B/P (MAP) Pulse Ox O2 Delivery O2 Flow Rate FiO2 06/30/17 12:30 98.4 99 20 132/81 (98) 94 06/30/17 07:45 97.6 86 20 140/83 (102) 92 06/30/17 04:00 97.4 83 18 146/81 (102) 94 06/30/17 00:00 98.0 101 20 159/83 (108) 96 06/29/17 20:00 97.8 98 19 138/75 (96) 95 06/29/17 16:17 96 21 06/29/17 16:00 97.1 102 17 102/68 (79) 96 I/O 06/29/17 06/29/17 06/29/17 06/30/17 06/30/17 06/30/17 07:00 15:00 23:00 07:00 15:00 23:00 Intake Total 360 ml 2120 ml Balance 360 ml 2120 ml Intake Oral 360 ml 1920 ml IV Total 200 ml # Voids 4 5 2 # Bowel Movements 0 0 Result Diagram: 06/27/17 1600 06/28/17 0657 Objective Remarks GENERAL: This is an obese middle-aged white female who is alert, in no acute distress. HEENT: Head normocephalic. Pupils are reactive. Nasal mucosa injected. Throat was also injected. NECK: Supple without venous distension. No lymphadenopathy or thyromegaly. CHEST: Equal movements with decreased breath sounds at the bases. Expiratory wheezes in the upper lung boyle. Prolonged expirations. HEART SOUNDS: Regular S1-S2. No murmur. No S3. ABDOMEN: Soft, obese, without masses. There are scars of multiple surgeries. Bowel sounds are active. No organomegaly. EXTREMITIES: No edema. Peripheral pulses are well felt. Reflexes are 1+ with no gross motor deficits. Cranial nerves grossly intact. SKIN: No lesions. Assessment and Plan Assessment and Plan IMPRESSION 1. Asthmatic bronchitis. 2. Allergic rhinitis. 3. Chronic obstructive pulmonary disease. 4. Diabetes mellitus. 5. Hypertension. 6. Hypothyroidism. 7. Obstructive sleep apnea and obesity. Plan : 1. Will continue prednisone and taper over 3 weeks. 2. D/C IV Levaquin. 3. Continue Symbicort , 2 puffs bid. 4. Continue Ventolin HFA , 2puffs qid prn 5. Home per Dr Gonzalez. 6. Will see as OP in 3 weeks Ángel Hutchins MD Jun 30, 2017 13:25
[2017-06-30] MEDS ORDERED: PRED20 PO (14:08)
--- NOTE | 2017-06-30 14:14 | HHI.DCPOC ---
Discharge Care Plan Diagnosis: (1) Asthma exacerbation (2) DM (diabetes mellitus) (3) HTN (hypertension) (4) Hypertension Goals to Promote Your Health * To prevent worsening of your condition and complications * To maintain your health at the optimal level Directions to Meet Your Goals Take your medications as prescribed Follow your dietary instruction Follow activity as directed Keep your appointments as scheduled Take your immunizations and boosters as scheduled If your symptoms worsen call your PCP, if no PCP go to Urgent Care Center or Emergency Room Smoking is Dangerous to Your Health. Avoid second hand smoke Call the 24-hour hour crisis hotline for domestic abuse at Geoffrey Gonzalez DO Jun 30, 2017 14:14
--- NOTE | 2017-06-30 14:19 | HHI.DS ---
Discharge Summary Admission Date Jun 27, 2017 at 17:10 Discharge Date: Jun 30, 2017 Admitting Diagnosis ASTHMA EXACERBATION (1) Asthma exacerbation Diagnosis: Principal ICD Codes: J45.901 - Asthma with acute exacerbation Status: Acute (2) Hypertension Diagnosis: Secondary ICD Codes: I10 - Hypertension Status: Chronic (3) DM (diabetes mellitus) Diagnosis: Secondary ICD Codes: E11.9 - Type 2 diabetes mellitus without complications Status: Chronic (4) GERD (gastroesophageal reflux disease) Diagnosis: Secondary ICD Codes: K21.9 - Gastro-esophageal reflux disease without esophagitis Status: Chronic (5) Hypothyroidism Diagnosis: Secondary ICD Codes: E03.9 - Hypothyroidism Status: Chronic (6) Hypokalemia Diagnosis: Principal ICD Codes: E87.6 - Hypokalemia Status: Acute Consultants Dr. Miah Hutcihns, Pulmonary Medicine Brief History Mrs. Giles is a 47 y/o WF with severe asthma diagnosed around 10years ago, diagnosed through PFTs per the pt, and is chronically on steroid therapy up to 40mg per day. Pt reports having a flare of her asthma over past 2-3 weeks and coughing up green sputum. She has been to urgent care and to pcp. She has had several shots of steroid in the office and again takes 40mg prednisone per day. She has had 2 zacks and currently on levaquin. Decided to come here as she still has significant sob and wheezing.. In ED has had solumedrol and nebs. CBC/BMP: 06/27/17 1600 06/28/17 0657 Significant Findings Laboratory Tests Test 06/27/17 16:00 06/28/17 06:57 White Blood Count 11.3 TH/MM3 (4.0-11.0) Red Blood Count 5.36 MIL/MM3 (4.00-5.30) Mean Corpuscular Hemoglobin 26.9 PG (27.0-34.0) Neutrophils (%) (Auto) 72.3 % (16.0-70.0) Monocytes (%) (Auto) 11.4 % (0.0-8.0) Neutrophils # (Auto) 8.1 TH/MM3 (1.8-7.7) Monocytes # (Auto) 1.3 TH/MM3 (0-0.9) Creatinine 1.11 MG/DL (0.50-1.00) 1.12 MG/DL (0.50-1.00) Random Glucose 57 MG/DL (74-106) 316 MG/DL (74-106) Aspartate Amino Transf (AST/SGOT) 11 U/L (15-37) Potassium Level 3.3 MEQ/L (3.5-5.1) Estimat Glomerular Filtration Rate 53 ML/MIN (>89) 52 ML/MIN (>89) Blood Urea Nitrogen 21 MG/DL (7-18) Imaging Last Impressions Chest X-Ray 06/27/17 5128 Signed Impressions: Service Date/Time: Tuesday, June 27, 2017 16:36 - CONCLUSION: No acute disease. Miah Owens MD PE at Discharge General: NAD, AAOx3 ENT: No evidence of thrush on examination Chest: Bilateral expiratory wheeze Cardiac: Regular Abd: +BS, soft ND/NT Ext: No edema Hospital Course (1) Asthma exacerbation ICD Codes: J45.901 - Asthma with acute exacerbation Status: Acute Plan: - comgmt with Pulm Med, Dr. Hutchins - Pt is a 47 y/o WF with severe asthma diagnosed around 10years ago, diagnosed through PFTs per the pt, and is chronically on steroid therapy up to 40mg per day. Pt reports having a flare of her asthma over past 2-3 weeks and coughing up green sputum. She has been to urgent care and to pcp. She has had several shots of steroid in the office and again takes 40mg prednisone per day. She has had 2 Z-paks and was on Levaquin at the time of admission. - Pt was given Solu-Medrol and Duonebs in the ED - Pt was continued on Solu-Medrol 40mg Q6H, Duonebs Q4H scheduled, Budesonide Nebs BID, and Levaquin - Pt has been weaned off supplemental O2 - symbicort, will change back to Advair upon discharge - PFTs ordered - discharge to home 06/30/17 - Pt will be on a slow prednisone taper - continue albuterol/atrovent nebules q 6 hours - f/u with PCP Dr. Hdez in 1 week - f/u with Pulmonary Medicine, Dr. Hutchins, in 3 weeks - case d/w Dr. Hutchins (06/30/17) (2) Hypertension ICD Codes: I10 - Hypertension Status: Chronic Plan: - Cont Norvasc and Lisinopril at home doses - Monitor (3) DM (diabetes mellitus) ICD Codes: E11.9 - Type 2 diabetes mellitus without complications Status: Chronic Plan: - blood sugars elevated from baseline d/t steroids - Change Levemir to 30 units bid - resume scheduled novolog to 15 units TID (takes 40 units TID at home) - Cont. NovoLog SSI, high dose - Cont. Metformin 1000mg po BID - resume home medication doses of novolog and levemir upon discharge (4) GERD (gastroesophageal reflux disease) ICD Codes: K21.9 - Gastro-esophageal reflux disease without esophagitis Status: Chronic Plan: - Cont. PPI (5) Hypothyroidism ICD Codes: E03.9 - Hypothyroidism Status: Chronic Plan: - Home meds continued (6) Hypokalemia ICD Codes: E87.6 - Hypokalemia Status: Acute Plan: - Improved with replacement Pt Condition on Discharge: Stable Discharge Disposition: Discharge Home Discharge Instructions DIET: Follow Instructions for: Diabetic Diet Activities you can perform: Regular-No Restrictions Follow up Referrals: PCP Follow-up - [address] Georges Hdez Pulmonology - 3 Weeks with Ángel Hutchins MD New Medications: Prednisone (Prednisone) 20 Mg Tab 20 MG PO BID for copd for 15 Days, #30 TAB 20mg BID x 5d, then 20mg Daily x 5 days 10mg daily x 5 days, then stop Continued Medications: Albuterol 18 GM Inh (Ventolin Hfa 18 GM Inh) 90 Mcg/Act Aer 2 PUFF INH Q4H PRN for SHORTNESS OF BREATH, #1 INHALER 0 Refills Alprazolam (Xanax) 2 Mg Tab 2 MG PO Q8H PRN for ANXIETY, TAB 0 Refills Amlodipine (Norvasc) 5 Mg Tab 10 MG PO DAILY for Blood Pressure Management, #30 TAB 0 Refills Cyclobenzaprine (Flexeril) 10 Mg Tab 10 MG PO TID for Muscle Spasm, #90 TAB 0 Refills Fluticasone-Salmeterol Inh (Advair Diskus Inh) 500-50 Mcg/Blist Aer 1 PUFF INH BID, #1 INHALER 0 Refills Rinse mouth after use. Hydrocodone-Acetaminophen (Hydrocodone-Acetaminophen) 7.5 Mg-325 Mg Tab 2 TAB PO Q4H PRN for PAIN, TAB 0 Refills Insulin Aspart Inj (Novolog Inj) 1,000 Unit/10 Ml Vial 40 UNITS SQ TID for Blood Sugar Management, #10 ML 0 Refills Insulin Glargine Inj (Lantus Inj) 1,000 Unit/10 Ml Vial 40 UNITS SQ HS for Blood Sugar Management, VIAL 0 Refills Ipratropium-Albuterol Neb (Duoneb) 0.5-2.5 Mg/3 Ml Neb 1 NEBULE INH Q2HR for SHORTNESS OF BREATH, #120 NEBULE 0 Refills Metformin (Metformin) 1,000 Mg Tab 1000 MG PO BIDPC for Blood Sugar Management, #60 TAB 0 Refills With meals Montelukast (Singulair) 10 Mg Tab 10 MG PO HS, #30 TAB 0 Refills Promethazine-Codeine Liq (Promethazine-Codeine Liq) 6.25-10 Mg/5 Ml Syrp 10 ML PO Q4H PRN for COUGH AND/OR COLD SYMPTOMS, ML 0 Refills Discontinued Medications: Prednisone (Prednisone) 20 Mg Tab 40 MG PO DAILY, #10 TAB 0 Refills Take 40 mg (2 tablets) daily for 5 days Geoffrey Gonzalez DO Jun 30, 2017 14:19
[2017-06-30] MEDS ORDERED: predniSONE 20 MG TAB PO SCH (21:00)
== END 2017-06-30 16:47 | disposition home or self-care (01) | DRG 203 ==
LOC: NEPE 14:27 → NEDA 17:10 → N05B 18:19
PROVIDERS: ADMIT Hospitalist; ATTEND Hospitalist
DX: J45.901 Unspecified asthma with (acute) exacerbation (principal); E11.9 Type 2 diabetes mellitus without complications; I10 Essential (primary) hypertension; R06.03 Acute respiratory distress; E03.9 Hypothyroidism, unspecified; K21.9 Gastro-esophageal reflux disease without esophagitis; G89.29 Other chronic pain; M54.5 Low back pain; E66.9 Obesity, unspecified; F41.9 Anxiety disorder, unspecified; E87.6 Hypokalemia; J44.9 Chronic obstructive pulmonary disease, unspecified; R09.82 Postnasal drip; G47.33 Obstructive sleep apnea (adult) (pediatric); T38.0X5A Adverse effect of glucocorticoids and synthetic analogues, initial encounter; R00.0 Tachycardia, unspecified; R09.02 Hypoxemia; Z23 Encounter for immunization; Z68.39 Body mass index [BMI] 39.0-39.9, adult; Z79.4 Long term (current) use of insulin; Z79.52 Long term (current) use of systemic steroids; Z88.1 Allergy status to other antibiotic agents
CPT/HCPCS: 71020; 80048; 80053; 82948; 85025; 90686; 90732; 93005; 94060; 94640; 94664; 96374; J1815; J1956; J2920; J2930; J7626; Q2038